=== PATIENT | male | born 1945 | race Caucasian/White ===

== ENCOUNTER 2016-06-24 12:01 | Day surgery (SDC) | payer MEDICARE, BC ==
[2016-06-24] MEDS ORDERED: fentaNYL 100 MCG PATCH TOP ONE (13:31)
[2016-06-24] MEDS ORDERED: fentaNYL 250 MCG/5 ML VIAL IVP ONE (13:31)
[2016-06-24] MEDS ORDERED: MIDAZOLAM 2 MG/2 ML VIAL IVP ONE (13:31)
[2016-06-24] MEDS ORDERED: LACTATED RINGERS 1,000 ML IV ONE ×2 (13:31→14:30)
[2016-06-24] MEDS ORDERED: SIMETHICONE 40 MG/0.6 ML 30 ML BOTTLE PO ONE (13:50)
== END 2016-06-24 12:02 | disposition home or self-care (01) ==
PROC: 0DBL8ZX Excision of Transverse Colon, Via Natural or Artificial Opening Endoscopic, Diagnostic (ICD-10-PCS; 2016-06-24)
PROC: 0DBG8ZX Excision of Left Large Intestine, Via Natural or Artificial Opening Endoscopic, Diagnostic (ICD-10-PCS; principal; 2016-06-24 13:00)
DX: Z86.010 Personal history of colon polyps (principal); K57.30 Diverticulosis of large intestine without perforation or abscess without bleeding; Z88.0 Allergy status to penicillin; Z88.2 Allergy status to sulfonamides; K58.9 Irritable bowel syndrome, unspecified; E11.9 Type 2 diabetes mellitus without complications; I10 Essential (primary) hypertension; I48.91 Unspecified atrial fibrillation; Z79.01 Long term (current) use of anticoagulants
CPT/HCPCS: 45380; A9270; J3010; J7120

== ENCOUNTER 2016-12-01 01:40 | Emergency (ER) | payer MEDICARE, BC ==
[2016-12-01] MEDS ORDERED: ONDANSETRON 4 MG/2 ML VIAL ONE (02:06)
[2016-12-01] MEDS ORDERED: SODIUM CHLORIDE FLUSH 0.9% 10 ML SYRINGE IVP ONE (02:06)
[2016-12-01] MEDS: ONDANSETRON 4 MG/2 ML VIAL IVP STA (02:06)
[2016-12-01 02:12] LABS: BASOPHILS % (AUTO) 0.1 %; EOSINOPHILS % (AUTO) 0.6 %; HCT - HEMATOCRIT 40.5 % (42.0-52.0); HGB - HEMOGLOBIN 13.6 g/dL (14.0-18.0); LYMPHOCYTES # (AUTO) 0.4 10^3/uL (1.5-3.5); LYMPHOCYTES % (AUTO) 6.2 %; MEAN CORPUSCULAR HEMOGLOBIN 31.6 pg (27.0-31.0); MEAN CORPUSCULAR HGB CONC 33.6 g/dL (32.0-36.0); MEAN PLATELET VOLUME 9.8 fL (7.4-11.4); MONOCYTES # (AUTO) 0.3 10^3/uL (0.0-1.0); MONOCYTES % (AUTO) 4.9 %; NEUTROPHILS # (AUTO) 5.1 10^3/uL (1.5-6.6); NEUTROPHILS % (AUTO) 88.2 %; RED BLOOD COUNT 4.31 10^6/uL (4.70-6.10); RED CELL DISTRIBUTION WIDTH 13.6 % (12.0-15.0); UNCORRECTED WHITE BLOOD COUNT 5.8 x10^3/uL; WHITE BLOOD COUNT 5.8 x10^3/uL (4.8-10.8)
[2016-12-01 02:16] LABS: ALBUMIN/GLOBULIN RATIO 1.6 (1.0-2.2); BILIRUBIN,TOTAL 2.2 mg/dL (0.2-1.0); CALCIUM 8.6 mg/dL (8.5-10.3); CREATININE 0.8 mg/dL (0.6-1.2); POTASSIUM 3.6 mmol/L (3.5-5.0)
[2016-12-01 02:17] LABS: INR 3.7 (0.8-1.2); PT - PROTHROMBIN TIME 41.8 secs (9.9-12.6)
[2016-12-01] MEDS: DICYCLOMINE 10 MG CAPSULE PO STA (02:30)
[2016-12-01] MEDS: SODIUM CHLORIDE 0.9% 1,000 ML IV ONE (02:30)
[2016-12-01] MEDS ORDERED: DICYCLOMINE 10 MG CAPSULE PO ONE (02:32)
[2016-12-01 03:22] LABS: BILIRUBIN,URINE NEGATIVE (NEGATIVE)
[2016-12-01 03:24] LABS: UA CHARGE (STRIP ONLY) YES; UR CULTURE IF IND NOT INDICATED
[2016-12-01] MEDS: IOPAMIDOL-300 100 ML VIAL IVP ONE (03:33)
--- NOTE | 2016-12-01 03:51 | ED Physician Documentation ---
PD HPI ABD PAIN - Stated complaint Stated Complaint: ABDOMINAL PAIN - Chief complaint Chief Complaint: Abd Pain - History obtained from History obtained from: Patient, Family - History of Present Illness Timing - onset: Today Timing - details: Gradual onset, Still present Quality: Cramping, Aching Location: All over / everywhere, Suprapubic Worsened by: Eating Associated symptoms: Nausea. No: Fever, Vomiting Similar symptoms before: No diagnosis Recently seen: Not recently seen - Additional information Additional information: Patient is a 71 year old male with multiple comorbidities who is presenting to the emergency department for abdominal pain, and diarrhea. patient states that he was feeling a little funny around noon and had an episode of loose watery stools. Patient took ammodium and drank three gatorades. Patient states that the stools got smaller and smaller but he still felt bloated so he came in for evaluation after talking to the physician after hours line. Review of Systems Constitutional: denies: Fever, Chills Eyes: denies: Photophobia Ears: denies: Ear pain, Drainage/discharge Nose: denies: Rhinorrhea / runny nose, Congestion, Epistaxis Throat: denies: Oral lesions / sores Cardiac: denies: Chest pain / pressure, Palpitations Respiratory: denies: Dyspnea, Cough, Wheezing GI: reports: Abdominal Pain, Abdominal Swelling, Nausea, Diarrhea. denies: Vomiting : denies: Dysuria, Frequency, Hesitancy Skin: denies: Rash, Lesions Musculoskeletal: denies: Neck pain, Back pain, Extremity pain Neurologic: denies: Generalized weakness, Focal weakness, Numbness, Difficulty speaking, Syncope, Altered mental status, Headache Immunocompromised: denies: Immunocompromised PD PAST MEDICAL HISTORY - Past Medical History Past Medical History: Yes Cardiovascular: Hypertension, High cholesterol, Atrial fibrillation, Murmur, Valve disorder, Other Respiratory: Other Endocrine/Autoimmune: Type 2 diabetes GI: Colon polyps, Ulcerative colitis : None HEENT: None Psych: Anxiety Musculoskeletal: Osteoarthritis Derm: Eczema - Past Surgical History Past Surgical History: Yes General: Colonoscopy Cardiovascular: Other HEENT: Cataracts - Present Medications Home Medications: Ambulatory Orders Medication Instructions Recorded Confirmed Atenolol 100 mg PO DAILY 11/23/12 06/24/16 Clonazepam 0.25 tab PO QID 11/23/12 06/24/16 Lactobacillus Rhamnosus GG 1 each PO DAILY 11/23/12 01/23/14 [Probiotic] Losartan [Cozaar] 50 mg PO DAILY 11/23/12 06/24/16 Metformin HCl [Glucophage Xr] 250 mg PO BID 11/23/12 06/24/16 Mometasone Furoate [Asmanex] 220 mcg IH HS 11/23/12 06/24/16 Multivitamin [Multivitamins] 1 each PO 11/23/12 01/23/14 Fluticasone [Flonase] 1 sprays ELIAZAR PRN 02/20/13 01/23/14 Loperamide HCl [Imodium A-D] 2 mg PO PRN 02/20/13 01/23/14 Fexofenadine [Frances] 180 mg PO DAILY 09/04/13 01/23/14 Rosuvastatin Calcium [Crestor] 5 mg PO QPM 09/04/13 06/24/16 Loratadine [Claritin] 10 mg ORAL QID 06/23/16 06/24/16 Mirtazapine [Remeron] 1 tab ORAL DAILY 06/23/16 06/24/16 Warfarin [Coumadin] 10 mg ORAL DAILY 06/23/16 06/24/16 Dicyclomine [Bentyl] 10 mg PO TID #15 capsule 12/01/16 Ondansetron Odt [Zofran] 4 mg TL Q6H PRN #14 tablet 12/01/16 - Allergies Allergies/Adverse Reactions: Allergies Allergy/AdvReac Type Severity Reaction Status Date / Time azithromycin [From Zithromax] Allergy Intermediate Cramps Verified 12/01/16 01: 55 doxycycline Allergy Mild Rash Verified 12/01/16 01:55 ampicillin [Ampicillin] AdvReac Intermediate Cramps Verified 12/01/16 01:55 cefaclor [From Ceclor] AdvReac Intermediate Cramps Verified 12/01/16 01:55 ciprofloxacin [From Cipro] AdvReac Intermediate Cramps Verified 12/01/16 01:55 ciprofloxacin HCl * AdvReac Intermediate Cramps Verified 12/01/16 01:55 [From Cipro] erythromycin base AdvReac Intermediate Cramps Verified 12/01/16 01:55 [Erythromycin Base] fluconazole [From Diflucan] AdvReac Intermediate Cramps Verified 12/01/16 01:55 Penicillins AdvReac Intermediate Cramps Verified 12/01/16 01:55 Sulfa (Sulfonamide AdvReac Intermediate Cramps Verified 12/01/16 01:55 Antibiotics) metronidazole [From Flagyl] AdvReac Nausea Verified 12/01/16 01:56 multiple antibiotics Allergy Rash Uncoded 12/01/16 01:55 azithromax AdvReac Intermediate Cramps Uncoded 12/01/16 01:55 - Social History Does the pt smoke?: No Smoking Status: Never smoker Does the pt drink ETOH?: No Does the pt have substance abuse?: No - Immunizations Immunizations are current?: Yes - POLST Patient has POLST: No PD ED PE NORMAL - Vitals Vital signs reviewed: Yes - General General: Alert and oriented X 3, No acute distress - HEENT HEENT: PERRL - Neck Neck: Supple, no meningeal sign - Cardiac Cardiac: RRR, No murmur - Respiratory Respiratory: No respiratory distress - Derm Derm: Normal color, Warm and dry - Neuro Neuro: Alert and oriented X 3, No motor deficit, No sensory deficit, Normal speech - Psych Psych: Normal mood, Normal affect PD ED PE EXPANDED - HEENT HEENT: Moist mucous membranes - Abdomen Abdomen: Hyperactive BS, Tender to palpation, Suprapubic. No: Rebound, Guarding Results - Vitals Vitals: Vital Signs - 24 hr 12/01/16 01:47 Temperature 37.3 C Heart Rate 100 Respiratory 16 Rate Blood Pressure 126/72 O2 Saturation 98 Oxygen O2 Source Room air - Labs Labs: Laboratory Tests 12/01/16 12/01/16 12/01/16 01:58 01:58 01:58 WBC 5.8 RBC 4.31 L Hgb 13.6 L Hct 40.5 L MCV 94.0 MCH 31.6 H MCHC 33.6 RDW 13.6 Plt Count 88 L MPV 9.8 Neut # 5.1 Lymph # 0.4 L [place] # 0.3 Eos # 0.0 Baso # 0.0 Absolute Nucleated RBC 0.00 Nucleated RBCs 0.0 PT INR Sodium 134 L Potassium 3.6 Chloride 100 L Carbon Dioxide 26 Anion Gap 8.0 BUN 25 H Creatinine 0.8 Estimated GFR (MDRD) 95 Glucose 132 H Lactic Acid 0.9 Calcium 8.6 Total Bilirubin 2.2 H AST 32 ALT 27 Alkaline Phosphatase 60 Total Protein 7.0 Albumin 4.3 Globulin 2.7 Albumin/Globulin Ratio 1.6 Lipase 60 H Urine Color Urine Clarity Urine pH Ur Specific [place] Urine Protein Urine Glucose (UA) Urine Ketones Urine Occult Blood Urine Nitrite Urine Bilirubin Urine Urobilinogen Ur Leukocyte Esterase Ur Microscopic Review Urine Culture Comments 12/01/16 12/01/16 01:58 03:15 WBC RBC Hgb Hct MCV MCH MCHC RDW Plt Count MPV Neut # Lymph # [place] # Eos # Baso # Absolute Nucleated RBC Nucleated RBCs PT 41.8 H INR 3.7 H Sodium Potassium Chloride Carbon Dioxide Anion Gap BUN Creatinine Estimated GFR (MDRD) Glucose Lactic Acid Calcium Total Bilirubin AST ALT Alkaline Phosphatase Total Protein Albumin Globulin Albumin/Globulin Ratio Lipase Urine Color YELLOW Urine Clarity CLEAR Urine pH 6.0 Ur Specific [place] <=1.005 Urine Protein NEGATIVE Urine Glucose (UA) NEGATIVE Urine Ketones NEGATIVE Urine Occult Blood TRACE-LYSE Urine Nitrite NEGATIVE Urine Bilirubin NEGATIVE Urine Urobilinogen 0.2 (NORMAL) Ur Leukocyte Esterase NEGATIVE Ur Microscopic Review NOT INDICATED Urine Culture Comments NOT INDICATED - Rads (name of study) ct abdomen and pelvis Radiology: Final report received (gastroenteritis, diverticulosis) PD MEDICAL DECISION MAKING - ED course Complexity details: reviewed old records, reviewed results, re-evaluated patient , considered differential, d/w patient, d/w family ED course: Patient was seen and examined at bedside. IV access was gained and labs were drawn. Patient was treated with fluids, zofran and bentyl. When patient's labs came back patient was sent for imaging. when patient returned the results were reviewed. there were findings consistent with viral gastroenteritis. Patient required no further work up and was stable for discharge with outpatient follow up. Departure - Departure Disposition: 01 Home, Self Care Clinical Impression: Gastroenteritis Condition: Good Instructions: ED Gastroenteritis Viral Follow-Up: Josh Hassan MD [Primary Care Provider] - Within 1 week Prescriptions: Dicyclomine [Bentyl] 10 mg PO TID #15 capsule Ondansetron Odt [Zofran] 4 mg TL Q6H PRN #14 tablet PRN Reason: Nausea / Vomiting Comments: Your diagnostics today revealed mild gastroenteritis. It is likely viral in nature and should be self limited. You should eat a simple diet and take zofran as needed for nausea. you should make sure you stay well hydrated with gatorade and electrolyte solutions. You can take tylenol or bentyl as needed for abdominal pain. You should follow up with your pmd if your symptoms persist for more than the next three days.
--- NOTE | 2016-12-01 03:55 | CT Preliminary Report ---
Exam: CT Abdomen/Pelvis W/ IMPRESSION: 1. Findings raise question of a low-grade gastroenteritis in the proper clinical setting. 2. Extensive colonic diverticulosis. 3. Cholelithiasis. 4. 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 [facility] SITE ID: [id number]
--- NOTE | 2016-12-01 04:01 | CT Report ---
EXAM: CT ABDOMEN AND PELVIS EXAM DATE: 12/01/2016 03:36 AM. CLINICAL HISTORY: Lower abdominal pain. COMPARISONS: None. TECHNIQUE: Routine helical CT imaging was performed through the abdomen and pelvis. IV contrast: 100 mL [id number]-300. Enteric contrast: No . Reconstructions: Coronal and sagittal. In accordance with CT protocol optimization, one or more of the following dose reduction techniques w ere utilized for this exam: automated exposure control, adjustment of mA and/or KV based on patient s ize, or use of iterative reconstructive technique. FINDINGS: Lung Bases: Pectus excavatum. Probable emphysema and scarring. Liver: Unremarkable. No suspicious masses. Gallbladder/Biliary System: Cholelithiasis. Spleen: Unremarkable. Pancreas: Unremarkable. Adrenal Glands: Unremarkable. Kidneys: Unremarkable. No suspicious masses or hydronephrosis. Peritoneal Cavity/Bowel: Extensive colonic diverticulosis. Fluid-filled nondistended small bowel thro ughout. No bowel obstruction or focal inflammatory process seen. No free air or significant free flui d. No masses or adenopathy. The appendix is not seen but there is no evidence of appendicitis. No exc essive stool burden. Pelvic Organs: Bladder and prostate appear unremarkable. Vasculature: Duplicated IVC. No aneurysms or other significant abnormality. Bones: Pectus excavatum. No acute abnormality. Other: None. IMPRESSION: 1. Findings raise question of a low-grade gastroenteritis in the proper clinical setting. 2. Extensive colonic diverticulosis. 3. Cholelithiasis. 4. 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 [facility] Referring Provider Line: [phone] SITE ID: [id number]
[2016-12-01 04:42] VITALS: BP 120/70
== END 2016-12-01 04:43 | disposition home or self-care (01) ==
LOC: ED 01:40
DX: K52.9 Noninfective gastroenteritis and colitis, unspecified (principal); I10 Essential (primary) hypertension; E78.00 Pure hypercholesterolemia, unspecified; I48.91 Unspecified atrial fibrillation; Z79.01 Long term (current) use of anticoagulants; E11.9 Type 2 diabetes mellitus without complications; Z79.84 Long term (current) use of oral hypoglycemic drugs; M19.90 Unspecified osteoarthritis, unspecified site; Z86.010 Personal history of colon polyps; Z87.19 Personal history of other diseases of the digestive system
CPT/HCPCS: 36415; 74177; 80053; 81003; 83605; 83690; 85025; 85610; 96374; 99283; 99284; A9270; Q9967; 81001; 83880; 84484; 87086

== ENCOUNTER 2016-12-19 07:26 | Outpatient (CLI) | payer MEDICARE, BC ==
[2016-12-19 08:05] LABS: BASOPHILS # (AUTO) 0.1 10^3/uL (0.0-0.1); BASOPHILS % (AUTO) 1.4 %; EOSINOPHILS # (AUTO) 0.1 10^3/uL (0.0-0.7); HCT - HEMATOCRIT 42.2 % (42.0-52.0); HGB - HEMOGLOBIN 13.9 g/dL (14.0-18.0); LYMPHOCYTES % (AUTO) 23.2 %; MEAN CORPUSCULAR HEMOGLOBIN 31.4 pg (27.0-31.0); MEAN CORPUSCULAR HGB CONC 32.9 g/dL (32.0-36.0); MEAN CORPUSCULAR VOLUME 95.6 fL (80.0-94.0); MONOCYTES # (AUTO) 0.4 10^3/uL (0.0-1.0); MONOCYTES % (AUTO) 8.4 %; NEUTROPHILS # (AUTO) 2.8 10^3/uL (1.5-6.6); NUCLEATED RED BLOOD CELLS AUTO 0.1 /100WBC; RED BLOOD COUNT 4.42 10^6/uL (4.70-6.10); RED CELL DISTRIBUTION WIDTH 13.4 % (12.0-15.0); UNCORRECTED WHITE BLOOD COUNT 4.4 x10^3/uL; WHITE BLOOD COUNT 4.4 x10^3/uL (4.8-10.8)
[2016-12-19 08:13] LABS: ALBUMIN/GLOBULIN RATIO 1.8 (1.0-2.2); BILIRUBIN,TOTAL 1.8 mg/dL (0.2-1.0); CALCIUM 9.4 mg/dL (8.5-10.3); CREATININE 0.8 mg/dL (0.6-1.2); POTASSIUM 3.8 mmol/L (3.5-5.0)
[2016-12-19 08:32] LABS: HEMOGLOBIN A1C 0.59 g/dL
== END 2016-12-19 07:27 | disposition home or self-care (01) ==
LOC: LAB 07:26
PROVIDERS: ATTEND Family Medicine
DX: E11.9 Type 2 diabetes mellitus without complications (principal)
CPT/HCPCS: 80053; 82043; 83036; 85025

== ENCOUNTER 2017-01-11 09:55 | Outpatient (CLI) | payer MEDICARE, BC | END 2017-01-11 09:56 | disposition home or self-care (01) | LOC: RT 09:55 | PROVIDERS: ATTEND Nurse Practitioner | DX: I48.0 Paroxysmal atrial fibrillation (principal) | CPT/HCPCS: 93005 ==

== ENCOUNTER 2017-02-20 08:57 | Outpatient (CLI) | payer MEDICARE, BC ==
[2017-02-20 09:14] LABS: BASOPHILS % (AUTO) 0.6 %; EOSINOPHILS # (AUTO) 0.1 10^3/uL (0.0-0.7); HCT - HEMATOCRIT 41.4 % (42.0-52.0); HGB - HEMOGLOBIN 13.7 g/dL (14.0-18.0); LYMPHOCYTES # (AUTO) 0.9 10^3/uL (1.5-3.5); LYMPHOCYTES % (AUTO) 20.7 %; MEAN CORPUSCULAR HEMOGLOBIN 31.2 pg (27.0-31.0); MEAN CORPUSCULAR HGB CONC 33.1 g/dL (32.0-36.0); MEAN CORPUSCULAR VOLUME 94.4 fL (80.0-94.0); MEAN PLATELET VOLUME 9.5 fL (7.4-11.4); MONOCYTES # (AUTO) 0.4 10^3/uL (0.0-1.0); MONOCYTES % (AUTO) 8.8 %; NEUTROPHILS # (AUTO) 2.9 10^3/uL (1.5-6.6); NEUTROPHILS % (AUTO) 67.9 %; NUCLEATED RED BLOOD CELLS AUTO 0.1 /100WBC; RED BLOOD COUNT 4.39 10^6/uL (4.70-6.10); RED CELL DISTRIBUTION WIDTH 13.7 % (12.0-15.0); UNCORRECTED WHITE BLOOD COUNT 4.3 x10^3/uL; WHITE BLOOD COUNT 4.3 x10^3/uL (4.8-10.8)
[2017-02-20 09:27] LABS: ALBUMIN/GLOBULIN RATIO 1.4 (1.0-2.2); BILIRUBIN,TOTAL 1.9 mg/dL (0.2-1.0); CALCIUM 9.3 mg/dL (8.5-10.3); CREATININE 0.8 mg/dL (0.6-1.2); POTASSIUM 4.1 mmol/L (3.5-5.0); TOTAL PROTEIN 7.1 g/dL (6.7-8.2)
== END 2017-02-20 08:58 | disposition home or self-care (01) ==
LOC: LAB 08:57
PROVIDERS: ATTEND Family Medicine
DX: D69.6 Thrombocytopenia, unspecified (principal); E11.9 Type 2 diabetes mellitus without complications; I10 Essential (primary) hypertension
CPT/HCPCS: 36415; 80053; 85025

== ENCOUNTER 2017-08-21 07:44 | Outpatient (CLI) | payer MEDICARE, BC ==
[2017-08-21 08:18] LABS: BASOPHILS # (AUTO) 0.1 10^3/uL (0.0-0.1); BASOPHILS % (AUTO) 1.3 %; EOSINOPHILS # (AUTO) 0.1 10^3/uL (0.0-0.7); EOSINOPHILS % (AUTO) 2.2 %; HGB - HEMOGLOBIN 14.6 g/dL (14.0-18.0); LYMPHOCYTES # (AUTO) 0.8 10^3/uL (1.5-3.5); LYMPHOCYTES % (AUTO) 19.1 %; MEAN CORPUSCULAR HEMOGLOBIN 31.8 pg (27.0-31.0); MEAN CORPUSCULAR HGB CONC 33.2 g/dL (32.0-36.0); MEAN CORPUSCULAR VOLUME 95.6 fL (80.0-94.0); MEAN PLATELET VOLUME 10.1 fL (7.4-11.4); MONOCYTES # (AUTO) 0.5 10^3/uL (0.0-1.0); MONOCYTES % (AUTO) 11.6 %; NEUTROPHILS # (AUTO) 2.9 10^3/uL (1.5-6.6); NEUTROPHILS % (AUTO) 65.8 %; PLT - PLATELET COUNT 87 10^3/uL (130-450); RED BLOOD COUNT 4.58 10^6/uL (4.70-6.10); RED CELL DISTRIBUTION WIDTH 13.5 % (12.0-15.0); WHITE BLOOD COUNT 4.4 x10^3/uL (4.8-10.8)
[2017-08-21 08:34] LABS: HB2 TOTAL 16.1 g/dL; HEMOGLOBIN A1C 0.64 g/dL; HEMOGLOBIN A1C % 5.8 % (4.6-6.2)
[2017-08-21 08:40] LABS: ALBUMIN 4.4 g/dL (3.2-5.5); ALBUMIN/GLOBULIN RATIO 1.5 (1.0-2.2); ALKALINE PHOSPHATASE 68 IU/L (42-121); ALT ALANINE AMINOTRANSFERASE 30 IU/L (10-60); AST ASPARTATE AMINOTRANSFERASE 36 IU/L (10-42); BILIRUBIN,TOTAL 2.3 mg/dL (0.2-1.0); BUN - BLOOD UREA NITROGEN 25 mg/dL (6-20); CALCIUM 9.2 mg/dL (8.5-10.3); CARBON DIOXIDE - CO2 31 mmol/L (21-32); CHLORIDE 103 mmol/L (101-111); CHOL/HDL RATIO 2.3 (<5.0); CHOLESTEROL 115 mg/dL; GFR - MDRD 73 (>89); GLUCOSE 110 mg/dL (70-100); HDL CHOLESTEROL 49 mg/dL; LDL CHOLESTEROL,CALCULATED 56 mg/dL; LDL/HDL RATIO 1.1 (<3.6); SODIUM 140 mmol/L (135-145); TOTAL PROTEIN 7.3 g/dL (6.7-8.2); VLDL CHOLESTEROL 10 mg/dL
== END 2017-08-21 07:45 | disposition home or self-care (01) ==
LOC: LAB 07:44
PROVIDERS: ATTEND Family Medicine
DX: D69.6 Thrombocytopenia, unspecified (principal); I48.91 Unspecified atrial fibrillation; I10 Essential (primary) hypertension; E11.9 Type 2 diabetes mellitus without complications; Z12.5 Encounter for screening for malignant neoplasm of prostate
CPT/HCPCS: 36415; 80053; 80061; 82043; 83036; 85025; G0103; 83721; 84153

== ENCOUNTER 2018-01-10 07:36 | Outpatient (CLI) | payer MEDICARE, BC ==
[2018-01-10 08:04] LABS: ALBUMIN 4.3 g/dL (3.2-5.5); ALBUMIN/GLOBULIN RATIO 1.3 (1.0-2.2); BILIRUBIN,TOTAL 1.8 mg/dL (0.2-1.0); CALCIUM 9.1 mg/dL (8.5-10.3); CREATININE 0.9 mg/dL (0.6-1.2); TOTAL PROTEIN 7.5 g/dL (6.7-8.2)
[2018-01-10 10:01] LABS: HB2 TOTAL 15.8 g/dL; HEMOGLOBIN A1C 0.67 g/dL
== END 2018-01-10 07:37 | disposition home or self-care (01) ==
LOC: LAB 07:36
PROVIDERS: ATTEND Family Medicine
DX: I34.0 Nonrheumatic mitral (valve) insufficiency (principal); I48.91 Unspecified atrial fibrillation; E11.9 Type 2 diabetes mellitus without complications
CPT/HCPCS: 36415; 80053; 82043; 83036

== ENCOUNTER 2018-08-24 07:16 | Outpatient (CLI) | payer MEDICARE, BC ==
[2018-08-24 07:44] LABS: BASOPHILS # (AUTO) 0.1 10^3/uL (0.0-0.1); BASOPHILS % (AUTO) 1.3 %; EOSINOPHILS # (AUTO) 0.1 10^3/uL (0.0-0.7); EOSINOPHILS % (AUTO) 2.2 %; HGB - HEMOGLOBIN 14.8 g/dL (14.0-18.0); LYMPHOCYTES # (AUTO) 0.9 10^3/uL (1.5-3.5); LYMPHOCYTES % (AUTO) 20.5 %; MEAN CORPUSCULAR HGB CONC 33.2 g/dL (32.0-36.0); MEAN CORPUSCULAR VOLUME 96.2 fL (80.0-94.0); MEAN PLATELET VOLUME 10.3 fL (7.4-11.4); MONOCYTES # (AUTO) 0.4 10^3/uL (0.0-1.0); MONOCYTES % (AUTO) 9.3 %; NEUTROPHILS # (AUTO) 2.8 10^3/uL (1.5-6.6); NEUTROPHILS % (AUTO) 66.7 %; PLT - PLATELET COUNT 102 10^3/uL (130-450); RED BLOOD COUNT 4.62 10^6/uL (4.70-6.10); RED CELL DISTRIBUTION WIDTH 13.7 % (12.0-15.0); WHITE BLOOD COUNT 4.2 x10^3/uL (4.8-10.8)
[2018-08-24 09:22] LABS: CHOL/HDL RATIO 2.4 (<5.0); CHOLESTEROL 114 mg/dL; HDL CHOLESTEROL 47 mg/dL; LDL CHOLESTEROL,CALCULATED 58 mg/dL; LDL/HDL RATIO 1.2 (<3.6); VLDL CHOLESTEROL 9 mg/dL
[2018-08-25 13:44] LABS: ALBUMIN 4.6 g/dL (3.2-5.5); ALBUMIN/GLOBULIN RATIO 1.8 (1.0-2.2); BILIRUBIN,TOTAL 2.7 mg/dL (0.2-1.0); CALCIUM 9.3 mg/dL (8.5-10.3); CREATININE 0.8 mg/dL (0.6-1.2); TOTAL PROTEIN 7.2 g/dL (6.7-8.2)
== END 2018-08-24 07:17 | disposition home or self-care (01) ==
LOC: LAB 07:16
PROVIDERS: ATTEND Family Medicine
DX: I48.91 Unspecified atrial fibrillation (principal); I10 Essential (primary) hypertension; Z12.5 Encounter for screening for malignant neoplasm of prostate; E78.5 Hyperlipidemia, unspecified
CPT/HCPCS: 36415; 80061; 82043; G0103; 80048; 80053; 83721; 84153; 84443; 85025

== ENCOUNTER 2018-09-14 09:16 | Outpatient (CLI) | payer MEDICARE, BC ==
--- NOTE | 2018-09-14 14:18 | Ultrasound Report ---
Reason: THYROID NODULE Procedure Date: 09/14/2018 Accession Number: [id number] / [id number] Procedure: US - Head or Neck Soft Tissue CPT Code: FULL RESULT: EXAM: THYROID ULTRASOUND EXAM DATE: 09/14/2018 10:03 AM. CLINICAL HISTORY: Thyroid nodule. COMPARISON: HEAD OR NECK SOFT TISSUE 09/25/2015 9:26 AM. TECHNIQUE: Real time sonographic imaging of the thyroid was performed by the caving guide. Multiple small business sales representative static images were saved for review. FINDINGS: THYROID GLAND: Right Lobe: 4.8 x 1.8 x 1.5 cm, volume 6.5 cc. Normal background echotexture. Right Lobe Nodules: The mixed solid cystic spongiform 5 mm nodule is stable. 2 cysts measuring 3 mm or less are seen, benign. Left Lobe: 4.5 x 1.5 x 1.5 cm, volume 5.4 cc. Normal background echotexture. Left Lobe Nodules: The solid isoechoic 5 mm nodule is stable. Note is made of a 2 mm cyst, benign. Isthmus: 0.1 cm AP. Isthmic Nodules: None. LYMPH NODES: No adenopathy demonstrated in the central or lateral compartment. OTHER: None. IMPRESSION: Stable appearance of 2 nodules measuring up to 0.5 cm with very low suspicion features. Management recommendations are based on 2015 [place] [employer] Management Guidelines for Adult Patients with Thyroid Nodules and Differentiated Thyroid Cancer. [facility]
== END 2018-09-14 09:17 | disposition home or self-care (01) ==
LOC: DI 09:16
PROVIDERS: ATTEND Family Medicine
DX: E04.2 Nontoxic multinodular goiter (principal)
CPT/HCPCS: 76536

== ENCOUNTER 2018-10-25 08:09 | Outpatient (CLI) | payer MEDICARE, BC ==
[2018-10-25 08:47] LABS: CALCIUM 9.3 mg/dL (8.5-10.3); CREATININE 0.9 mg/dL (0.6-1.2)
[2018-10-25 09:20] LABS: HB2 TOTAL 15.6 g/dL; HEMOGLOBIN A1C 0.71 g/dL; HEMOGLOBIN A1C % 6.3 % (4.6-6.2)
== END 2018-10-25 08:10 | disposition home or self-care (01) ==
LOC: LAB 08:09
PROVIDERS: ATTEND Family Medicine
DX: I34.0 Nonrheumatic mitral (valve) insufficiency (principal); E11.9 Type 2 diabetes mellitus without complications
CPT/HCPCS: 36415; 80048; 83036

== ENCOUNTER 2019-01-03 16:37 | Emergency (ER) | payer MEDICARE, BC ==
[2019-01-03 17:04] LABS: BASOPHILS % (AUTO) 0.5 %; EOSINOPHILS # (AUTO) 0.1 10^3/uL (0.0-0.7); EOSINOPHILS % (AUTO) 1.1 %; HGB - HEMOGLOBIN 14.2 g/dL (14.0-18.0); LYMPHOCYTES # (AUTO) 1.1 10^3/uL (1.5-3.5); LYMPHOCYTES % (AUTO) 18.2 %; MEAN CORPUSCULAR HEMOGLOBIN 32.6 pg (27.0-31.0); MEAN CORPUSCULAR HGB CONC 32.9 g/dL (32.0-36.0); MEAN CORPUSCULAR VOLUME 98.9 fL (80.0-94.0); MEAN PLATELET VOLUME 11.8 fL (7.4-11.4); MONOCYTES # (AUTO) 0.5 10^3/uL (0.0-1.0); MONOCYTES % (AUTO) 8.4 %; NEUTROPHILS # (AUTO) 4.4 10^3/uL (1.5-6.6); NEUTROPHILS % (AUTO) 71.5 %; PLT - PLATELET COUNT 120 10^3/uL (130-450); RED BLOOD COUNT 4.36 10^6/uL (4.70-6.10); RED CELL DISTRIBUTION WIDTH 13.1 % (12.0-15.0); WHITE BLOOD COUNT 6.1 x10^3/uL (4.8-10.8)
[2019-01-03 17:08] LABS: INR 1.1 (0.8-1.2); PT - PROTHROMBIN TIME 12.7 secs (9.9-12.6)
[2019-01-03 17:15] LABS: ALBUMIN 4.8 g/dL (3.2-5.5); ALBUMIN/GLOBULIN RATIO 1.5 (1.0-2.2); BILIRUBIN,TOTAL 1.9 mg/dL (0.2-1.0); CALCIUM 9.9 mg/dL (8.5-10.3); CREATININE 0.9 mg/dL (0.6-1.2); TOTAL PROTEIN 7.9 g/dL (6.7-8.2)
[2019-01-03 18:52] LABS: BILIRUBIN,URINE NEGATIVE (NEGATIVE); GLUCOSE, URINE (UA) NEGATIVE (NEGATIVE); KETONES,URINE (UA) NEGATIVE (NEGATIVE); LEUKOCYTE ESTERASE, URINE NEGATIVE (NEGATIVE); NITRITE,URINE NEGATIVE (NEGATIVE); OCCULT BLOOD,URINE NEGATIVE (NEGATIVE); PH,URINE 5.5 PH (5.0-7.5); PROTEIN,URINE NEGATIVE (NEGATIVE); UROBILINOGEN,URINE 0.2 (NORMAL) E.U./dL (NORMAL)
[2019-01-03 18:55] LABS: CLARITY,URINE CLEAR (CLEAR)
[2019-01-03] MEDS ORDERED: MAG HYDROX/AL HYDROX/SIMETH 30 ML UDC PO STA (19:25)
[2019-01-03] MEDS ORDERED: LIDOCAINE VISCOUS 2% 15 ML UDC MM STA (19:26)
--- NOTE | 2019-01-03 19:27 | ED Physician Documentation ---
PD HPI ABD PAIN - Stated complaint Stated Complaint: ABDOMINAL PX - Chief complaint Chief Complaint: Abd Pain - History obtained from History obtained from: Patient - History of Present Illness Timing - onset: Yesterday (73-year-old gentleman who after eating a lot of tomato soup yesterday developed periumbilical bandlike nonradiating pain that has been resistant to Mylanta and omeprazole at home. He feels like he has a sour stomach. No nausea or vomiting. Normal bowel movements. It feels like prior gastritis.) Review of Systems Constitutional: denies: Fever, Chills Eyes: reports: Reviewed and negative Cardiac: denies: Chest pain / pressure, Palpitations Respiratory: denies: Dyspnea, Cough : reports: Reviewed and negative PD PAST MEDICAL HISTORY - Past Medical History Cardiovascular: Hypertension, High cholesterol, Atrial fibrillation, Murmur, Valve disorder, Other Respiratory: Other Endocrine/Autoimmune: Type 2 diabetes GI: Colon polyps, Ulcerative colitis : None HEENT: None Psych: Anxiety Musculoskeletal: Osteoarthritis Derm: Eczema - Past Surgical History Past Surgical History: Yes General: Colonoscopy Cardiovascular: Other HEENT: Cataracts - Present Medications Home Medications: Ambulatory Orders Medication Instructions Recorded Confirmed Clonazepam 0.25 tab PO QID 11/23/12 06/24/16 Lactobacillus Rhamnosus GG 1 each PO DAILY 11/23/12 01/23/14 [Probiotic] Losartan [Cozaar] 50 mg PO DAILY 11/23/12 06/24/16 Metformin HCl [Glucophage Xr] 250 mg PO BID 11/23/12 06/24/16 Mometasone Furoate [Asmanex] 220 mcg IH HS 11/23/12 06/24/16 Multivitamin [Multivitamins] 1 each PO 11/23/12 01/23/14 Fluticasone [Flonase] 1 sprays ELIAZAR PRN 02/20/13 01/23/14 Loperamide HCl [Imodium A-D] 2 mg PO PRN 02/20/13 01/23/14 Rosuvastatin Calcium [Crestor] 5 mg PO QPM 09/04/13 06/24/16 Dicyclomine [Bentyl] 10 mg PO TID #15 capsule 12/01/16 Metoprolol Succinate [Toprol Xl] 01/03/19 Rivaroxaban [Xarelto] 09/10/19 - Allergies Allergies/Adverse Reactions: Allergies Allergy/AdvReac Type Severity Reaction Status Date / Time azithromycin [From Zithromax] Allergy Intermediate Cramps Verified 12/01/16 01:55 doxycycline Allergy Mild Rash Verified 12/01/16 01:55 ampicillin [Ampicillin] AdvReac Intermediate Cramps Verified 12/01/16 01:55 cefaclor [From Ceclor] AdvReac Intermediate Cramps Verified 12/01/16 01:55 ciprofloxacin [From Cipro] AdvReac Intermediate Cramps Verified 12/01/16 01:55 ciprofloxacin HCl * AdvReac Intermediate Cramps Verified 12/01/16 01:55 [From Cipro] erythromycin base AdvReac Intermediate Cramps Verified 12/01/16 01:55 [Erythromycin Base] fluconazole [From Diflucan] AdvReac Intermediate Cramps Verified 12/01/16 01:55 Penicillins AdvReac Intermediate Cramps Verified 12/01/16 01:55 Sulfa (Sulfonamide AdvReac Intermediate Cramps Verified 12/01/16 01:55 Antibiotics) metronidazole [From Flagyl] AdvReac Nausea Verified 12/01/16 01:56 multiple antibiotics Allergy Rash Uncoded 12/01/16 01:55 azithromax AdvReac Intermediate Cramps Uncoded 12/01/16 01:55 - Social History Does the pt smoke?: No Smoking Status: Never smoker Does the pt drink ETOH?: No Does the pt have substance abuse?: No - Immunizations Immunizations are current?: Yes - POLST Patient has POLST: No PD ED PE NORMAL - Vitals Vital signs reviewed: Yes - General General: Alert and oriented X 3, Other (He has a marfanoid appearance, he says he was tested for this remotely and was negative.) - HEENT HEENT: PERRL, EOMI - Neck Neck: Supple, no meningeal sign, No bony TTP - Cardiac Cardiac: Other (Irregularly irregular, no murmur, pectus excavatum) - Respiratory Respiratory: No respiratory distress, Clear bilaterally - Abdomen Abdomen: Normal bowel sounds, Soft, Non tender, Other (Pulsatile aorta, but he is quite thin. Bedside ultrasound shows a less than 2.5 cm aorta throughout, easily visualized.) - Extremities Extremities: No edema, No calf tenderness / cord - Neuro Neuro: Alert and oriented X 3, Normal speech Results - Vitals Vitals: Vital Signs - 24 hr 01/03/19 01/03/19 16:56 19:34 Temperature 36.5 C Heart Rate 94 77 Respiratory 18 18 Rate Blood Pressure 164/74 H 159/78 H O2 Saturation 97 99 Oxygen O2 Source Room air - EKG (time done) 1938 Rate: Rate (enter#) (76) Rhythm: Atrial fibrillation [place]: Normal, LAD Intervals: Normal SC QRS: Normal Ischemia: Normal ST segments Computer interpretation: Agree with computer - Labs Labs: Laboratory Tests 01/03/19 01/03/19 01/03/19 16:57 16:57 16:57 WBC 6.1 RBC 4.36 L Hgb 14.2 Hct 43.1 MCV 98.9 H MCH 32.6 H MCHC 32.9 RDW 13.1 Plt Count 120 L MPV 11.8 H Neut # (Auto) 4.4 Lymph # (Auto) 1.1 L [place] # (Auto) 0.5 Eos # (Auto) 0.1 Baso # (Auto) 0.0 Absolute Nucleated RBC 0.00 Nucleated RBC % 0.0 PT 12.7 H INR 1.1 Sodium 138 Potassium 3.5 Chloride 100 L Carbon Dioxide 29 Anion Gap 9.0 BUN 34 H Creatinine 0.9 Estimated GFR (MDRD) 83 L Glucose 126 H Lactic Acid Calcium 9.9 Total Bilirubin 1.9 H AST 37 ALT 37 Alkaline Phosphatase 77 Troponin I High Sens Total Protein 7.9 Albumin 4.8 Globulin 3.1 Albumin/Globulin Ratio 1.5 Lipase 39 Urine Color Urine Clarity Urine pH Ur Specific [place] Urine Protein Urine Glucose (UA) Urine Ketones Urine Occult Blood Urine Nitrite Urine Bilirubin Urine Urobilinogen Ur Leukocyte Esterase Ur Microscopic Review Urine Culture Comments 01/03/19 01/03/19 01/03/19 16:57 16:57 17:10 WBC RBC Hgb Hct MCV MCH MCHC RDW Plt Count MPV Neut # (Auto) Lymph # (Auto) [place] # (Auto) Eos # (Auto) Baso # (Auto) Absolute Nucleated RBC Nucleated RBC % PT INR Sodium Potassium Chloride Carbon Dioxide Anion Gap BUN Creatinine Estimated GFR (MDRD) Glucose Lactic Acid 1.1 Calcium Total Bilirubin AST ALT Alkaline Phosphatase Troponin I High Sens 7.9 Total Protein Albumin Globulin Albumin/Globulin Ratio Lipase Urine Color YELLOW Urine Clarity CLEAR Urine pH 5.5 Ur Specific [place] 1.020 Urine Protein NEGATIVE Urine Glucose (UA) NEGATIVE Urine Ketones NEGATIVE Urine Occult Blood NEGATIVE Urine Nitrite NEGATIVE Urine Bilirubin NEGATIVE Urine Urobilinogen 0.2 (NORMAL) Ur Leukocyte Esterase NEGATIVE Ur Microscopic Review NOT INDICATED Urine Culture Comments NOT INDICATED - Rads (name of study) CT A/P Radiology: EMP read contemporaneously (Located IVC, cholelithiasis, diverticulosis.) PD MEDICAL DECISION MAKING - ED course ED course: 73-year-old gentleman with periumbilical abdominal pain, benign exam, no AAA on ultrasound. He does appear marfanoid, but says he had negative testing for Marfan's in the past. He received some relief with lidocaine, but it was incomplete. CT exam discussed with patient. Clinically inconsistent with gallstones, he was actually pain-free after the CT. Departure - Departure Disposition: 01 Home, Self Care Clinical Impression: Abdominal pain Qualifiers: Abdominal location: generalized Qualified Code(s): R10.84 - Generalized abdominal pain Gastritis Qualifiers: Gastritis type: unspecified gastritis Chronicity: acute Gastritis bleeding: without bleeding Qualified Code(s): K29.00 - Acute gastritis without bleeding Condition: Good Record reviewed to determine appropriate education?: Yes Instructions: ED Gastritis Comments: Continue the omeprazole, but he can double it to twice daily. Return for new worsening symptoms, especially fever, worse pain, vomiting, blood from either end. Follow-up with Dr. Hassan next week. Consider endoscopy or urea breath test if symptoms are persistent to evaluate for Helicobacter pylori.
[2019-01-03] MEDS ORDERED: IOVERSOL 320 100 ML VIAL IVP ONE ×2 (20:44→20:52)
--- NOTE | 2019-01-03 21:04 | CT Report ---
Reason: IV only, central abd pain Procedure Date: 01/03/2019 Accession Number: [id number] / [id number] Procedure: CT - Abdomen/Pelvis W CPT Code: FULL RESULT: EXAM: CT ABDOMEN AND PELVIS EXAM DATE: 01/03/2019 08:53 PM. CLINICAL HISTORY: IV only, central abd pain. COMPARISONS: ABDOMEN/PELVIS W/ 12/01/2016 3:24 AM. TECHNIQUE: Routine helical CT imaging was performed through the abdomen and pelvis. IV contrast: CE. Enteric contrast: No. Reconstructions: Coronal and sagittal. In accordance with CT protocol optimization, one or more of the following dose reduction techniques were utilized for this exam: automated exposure control, adjustment of mA and/or KV based on patient size, or use of iterative reconstructive technique. FINDINGS: Lung Bases: Noted is a pectus excavatum. No infiltrates the lung bases. Liver: The liver is grossly unremarkable. No interval changes compared to the prior study. Gallbladder/Bile Ducts: Cholelithiasis without evidence for cholecystitis. Spleen: Normal. Pancreas: Normal. Adrenal Glands: Normal. Kidneys: Normal. No masses or hydronephrosis. Peritoneal Cavity/Bowel: Normal. No free fluid, free air or adenopathy. No masses or acute inflammatory process. There are no inflammatory changes related to the colon. There are multiple scattered diverticula without evidence for diverticulitis. No inflammatory changes in the region of the cecum. No evidence for appendicitis. Pelvic Organs: Normal. The bladder and visualized pelvic organs are within normal limits. Vasculature: Duplicated inferior vena cava. Unremarkable aortoiliac vessels. Bones: Degenerative changes of the spine particularly the L2-L3 and 4 L5 disk levels. Other: None. IMPRESSION: 1. No findings to explain clinical symptoms. 2. Duplicated inferior vena cava. 3. Cholelithiasis. 4. Prominent diverticulosis without evidence for diverticulitis. [facility]
[2019-01-03 21:38] VITALS: BP 143/83
== END 2019-01-03 21:55 | disposition home or self-care (01) ==
LOC: ED 16:37
DX: K29.00 Acute gastritis without bleeding (principal); K80.20 Calculus of gallbladder without cholecystitis without obstruction; K57.30 Diverticulosis of large intestine without perforation or abscess without bleeding; I48.91 Unspecified atrial fibrillation; Z79.01 Long term (current) use of anticoagulants; I10 Essential (primary) hypertension; E11.9 Type 2 diabetes mellitus without complications; Z79.84 Long term (current) use of oral hypoglycemic drugs; Z87.19 Personal history of other diseases of the digestive system; Z86.010 Personal history of colon polyps
CPT/HCPCS: 36415; 74177; 80053; 81003; 83605; 83690; 84484; 85025; 85610; 93005; 99284; A9270; Q9967; 81001; 87086

== ENCOUNTER 2019-01-24 08:45 | Outpatient (CLI) | payer MEDICARE, BC ==
[2019-01-24 09:17] LABS: BASOPHILS % (AUTO) 0.4 %; EOSINOPHILS % (AUTO) 0.6 %; HGB - HEMOGLOBIN 14.8 g/dL (14.0-18.0); LYMPHOCYTES # (AUTO) 0.8 10^3/uL (1.5-3.5); LYMPHOCYTES % (AUTO) 14.9 %; MEAN CORPUSCULAR HEMOGLOBIN 32.6 pg (27.0-31.0); MEAN CORPUSCULAR HGB CONC 33.4 g/dL (32.0-36.0); MEAN CORPUSCULAR VOLUME 97.6 fL (80.0-94.0); MEAN PLATELET VOLUME 11.2 fL (7.4-11.4); MONOCYTES # (AUTO) 0.4 10^3/uL (0.0-1.0); NEUTROPHILS % (AUTO) 76.9 %; PLT - PLATELET COUNT 110 10^3/uL (130-450); RED BLOOD COUNT 4.54 10^6/uL (4.70-6.10); WHITE BLOOD COUNT 5.2 x10^3/uL (4.8-10.8)
[2019-01-24 09:40] LABS: HB2 TOTAL 14.5 g/dL; HEMOGLOBIN A1C 0.6 g/dL; HEMOGLOBIN A1C % 5.9 % (4.6-6.2)
[2019-01-24 10:36] LABS: CREATININE,URINE 81.5 mg/dL; MICROALBUM/CREATININE RATIO,UR 3.7 ug/mg (<30.0); MICROALBUMIN,URINE 0.3 mg/dL (0-300.0)
[2019-01-24 11:38] LABS: ALBUMIN 4.3 g/dL (3.2-5.5); ALBUMIN/GLOBULIN RATIO 1.8 (1.0-2.2); ALKALINE PHOSPHATASE 64 IU/L (42-121); ALT ALANINE AMINOTRANSFERASE 31 IU/L (10-60); AST ASPARTATE AMINOTRANSFERASE 30 IU/L (10-42); BILIRUBIN,TOTAL 2.2 mg/dL (0.2-1.0); BUN - BLOOD UREA NITROGEN 26 mg/dL (6-20); CARBON DIOXIDE - CO2 28 mmol/L (21-32); CHLORIDE 102 mmol/L (101-111); CHOL/HDL RATIO 2.3 (<5.0); CHOLESTEROL 112 mg/dL; CREATININE 0.9 mg/dL (0.6-1.2); GFR - MDRD 83 (>89); GLUCOSE 115 mg/dL (70-100); HDL CHOLESTEROL 48 mg/dL; SODIUM 137 mmol/L (135-145); TOTAL PROTEIN 6.7 g/dL (6.7-8.2)
== END 2019-01-24 08:46 | disposition home or self-care (01) ==
LOC: LAB 08:45
PROVIDERS: ATTEND Family Medicine
DX: E04.1 Nontoxic single thyroid nodule (principal); E11.9 Type 2 diabetes mellitus without complications; I34.0 Nonrheumatic mitral (valve) insufficiency; I48.91 Unspecified atrial fibrillation; A31.0 Pulmonary mycobacterial infection
CPT/HCPCS: 36415; 80053; 80061; 82043; 82570; 83036; 83721; 84443; 85025

== ENCOUNTER 2019-02-16 09:52 | Outpatient (CLI) | payer MEDICARE, BC | END 2019-02-16 09:53 | disposition home or self-care (01) | LOC: NS 09:52 | PROVIDERS: ATTEND Family Medicine | DX: Z71.3 Dietary counseling and surveillance (principal); E11.9 Type 2 diabetes mellitus without complications; R63.0 Anorexia | CPT/HCPCS: 97802 ==

== ENCOUNTER 2019-03-02 12:58 | Outpatient (CLI) | payer MEDICARE, BC | END 2019-03-02 12:59 | disposition home or self-care (01) | LOC: NS 12:58 | PROVIDERS: ATTEND Family Medicine | DX: Z71.3 Dietary counseling and surveillance (principal); Z68.20 Body mass index [BMI] 20.0-20.9, adult; E11.9 Type 2 diabetes mellitus without complications; R63.0 Anorexia | CPT/HCPCS: 97803 ==

== ENCOUNTER 2020-01-28 07:29 | Outpatient (CLI) | payer MEDICARE, BC ==
[2020-01-28 08:32] LABS: ALBUMIN 4.3 g/dL (3.2-5.5); ALBUMIN/GLOBULIN RATIO 1.6 (1.0-2.2); BILIRUBIN,TOTAL 2.7 mg/dL (0.2-1.0); CALCIUM 9.3 mg/dL (8.5-10.3)
[2020-01-28 08:34] LABS: CREATININE,URINE 113.8 mg/dL; MICROALBUM/CREATININE RATIO,UR 2.6 ug/mg (<30.0); MICROALBUMIN,URINE 0.3 mg/dL (0-300.0)
[2020-01-28 08:55] LABS: HEMOGLOBIN A1c% 5.8 % (4.27-6.07)
== END 2020-01-28 07:30 | disposition home or self-care (01) ==
LOC: LAB 07:29
PROVIDERS: ATTEND Family Medicine
DX: E78.5 Hyperlipidemia, unspecified (principal); R79.89 Other specified abnormal findings of blood chemistry; E11.9 Type 2 diabetes mellitus without complications; D69.6 Thrombocytopenia, unspecified; I34.0 Nonrheumatic mitral (valve) insufficiency; I10 Essential (primary) hypertension
CPT/HCPCS: 36415; 80053; 82043; 82570; 83036

== ENCOUNTER 2020-05-02 08:46 | Outpatient (CLI) | payer MEDICARE, BC ==
[2020-05-02 10:15] LABS: CREATININE,URINE 96.6 mg/dL; MICROALBUM/CREATININE RATIO,UR 2.1 ug/mg (<30.0); MICROALBUMIN,URINE 0.2 mg/dL (0-300.0)
[2020-05-02 10:29] LABS: CALCIUM 9.2 mg/dL (8.5-10.3); CREATININE 0.9 mg/dL (0.6-1.2)
[2020-05-02 11:13] LABS: HEMOGLOBIN A1c% 5.8 % (4.27-6.07)
== END 2020-05-02 08:47 | disposition home or self-care (01) ==
LOC: LAB 08:46
PROVIDERS: ATTEND Family Medicine
DX: I10 Essential (primary) hypertension (principal); E11.9 Type 2 diabetes mellitus without complications; Z12.5 Encounter for screening for malignant neoplasm of prostate; R79.89 Other specified abnormal findings of blood chemistry
CPT/HCPCS: 36415; 80048; 82043; 82542; 82570; 83036; G0103; 84153

== ENCOUNTER 2020-09-27 07:35 | Outpatient (CLI) | payer MEDICARE, BC ==
[2020-09-27 07:55] LABS: BASOPHILS % (AUTO) 0.7 %; EOSINOPHILS # (AUTO) 0.1 10^3/uL (0.0-0.7); EOSINOPHILS % (AUTO) 1.3 %; HCT - HEMATOCRIT 43.7 % (42.0-52.0); HGB - HEMOGLOBIN 14.3 g/dL (14.0-18.0); LYMPHOCYTES # (AUTO) 1.2 10^3/uL (1.5-3.5); LYMPHOCYTES % (AUTO) 26.5 %; MEAN CORPUSCULAR HEMOGLOBIN 32.1 pg (27.0-31.0); MEAN CORPUSCULAR HGB CONC 32.7 g/dL (32.0-36.0); MEAN PLATELET VOLUME 11.3 fL (7.4-11.4); MONOCYTES # (AUTO) 0.4 10^3/uL (0.0-1.0); MONOCYTES % (AUTO) 9.4 %; NEUTROPHILS # (AUTO) 2.8 10^3/uL (1.5-6.6); NEUTROPHILS % (AUTO) 61.9 %; PLT - PLATELET COUNT 99 10^3/uL (130-450); RED BLOOD COUNT 4.46 10^6/uL (4.70-6.10); RED CELL DISTRIBUTION WIDTH 13.1 % (12.0-15.0); WHITE BLOOD COUNT 4.5 x10^3/uL (4.8-10.8)
[2020-09-27 08:11] LABS: CREATININE,URINE 81.4 mg/dL; MICROALBUM/CREATININE RATIO,UR 6.1 ug/mg (<30.0); MICROALBUMIN,URINE 0.5 mg/dL (0-300.0)
[2020-09-27 08:22] LABS: THYROID STIMULATING HORMONE 3.56 uIU/mL (0.34-5.60)
[2020-09-27 08:30] LABS: ALBUMIN 4.6 g/dL (3.2-5.5); ALKALINE PHOSPHATASE 67 IU/L (42-121); ALT ALANINE AMINOTRANSFERASE 34 IU/L (10-60); AST ASPARTATE AMINOTRANSFERASE 42 IU/L (10-42); BILIRUBIN,TOTAL 2.7 mg/dL (0.2-1.0); BUN - BLOOD UREA NITROGEN 30 mg/dL (6-20); CALCIUM 9.3 mg/dL (8.5-10.3); CARBON DIOXIDE - CO2 29 mmol/L (21-32); CHLORIDE 103 mmol/L (101-111); CHOL/HDL RATIO 2.4 (<5.0); CHOLESTEROL 128 mg/dL; CREATININE 0.9 mg/dL (0.6-1.2); GFR - MDRD 82 (>89); GLUCOSE 99 mg/dL (70-100); HDL CHOLESTEROL 54 mg/dL; POTASSIUM 3.8 mmol/L (3.5-5.0); SODIUM 141 mmol/L (135-145); TOTAL PROTEIN 6.9 g/dL (6.7-8.2); TRIGLYCERIDES 38 mg/dL
[2020-09-27 12:07] LABS: ESTIMATED AVERAGE GLUCOSE 114 mg/dL (70-100); HEMOGLOBIN A1c% 5.6 % (4.27-6.07)
== END 2020-09-27 07:36 | disposition home or self-care (01) ==
LOC: LAB 07:35
PROVIDERS: ATTEND Internal Medicine
DX: D69.3 Immune thrombocytopenic purpura (principal); I48.21 Permanent atrial fibrillation; I34.0 Nonrheumatic mitral (valve) insufficiency; I10 Essential (primary) hypertension; E11.9 Type 2 diabetes mellitus without complications; E04.1 Nontoxic single thyroid nodule; D61.818 Other pancytopenia; E78.5 Hyperlipidemia, unspecified
CPT/HCPCS: 36415; 80053; 80061; 82043; 82570; 83036; 83721; 84443; 85025

== ENCOUNTER 2020-10-24 08:24 | Outpatient (CLI) | payer MEDICARE, BC ==
--- NOTE | 2020-10-24 17:32 | Ultrasound Report ---
PROCEDURE: Head or Neck Soft Tissue INDICATIONS: THYROID NODULE TECHNIQUE: Real-time scanning was performed of the thyroid gland, with image documentation. COMPARISON: 10/12/2019 FINDINGS: Right: Thyroid lobe measures 4.7 x 1.4 x 1.6 cm, and contains multiple nodules.. Left: Thyroid lobe measures 4.9 x 1.4 x 1.4 cm, and contains a single nodule. Isthmus: 3 mm thick. Nodule number: 1 Location: Right upper pole Size: 0.6 x 0.4 x 0.5 cm, previously 0.5 x 0.4 x 0.5 cm. Composition: Solid Echogenicity: Hypoechoic Shape: wider than tall. Margins: Smooth Echogenic foci: Punctate Total points: 7 ACR TI-RADS category: Highly suspicious Nodule number: 2 Location: Right middle pole Size: 0.50 0.3 x 0.4 cm, previously 0.4 x 0.3 x 0.3 cm. Composition: Predominantly cystic Echogenicity: Markedly hypoechoic Shape: Wider than tall Margins: Smooth Echogenic foci: None Total points: 0 ACR TI-RADS category: Benign Nodule number: 3 Location: Right lower pole Size: 0.3 x 0.2 x 0.3 cm, previously 0.3 x 0.2 cm. Composition: Predominantly cystic Echogenicity: Markedly hypoechoic Shape: wider than tall. Margins: Smooth Echogenic foci: None Total points: 0 ACR TI-RADS category: Benign Nodule number: 4 Location: Left middle pole/lower pole Size: 0.5 x 0.4 x 0.5 cm, previously 0.5 x 0.5 x 0.4 cm Composition: Solid Echogenicity: Hyperechoic Shape: wider than tall. Margins: Smooth Echogenic foci: None Total points: 3 ACR TI-RADS category: Mildly suspicious IMPRESSION: Multinodular thyroid. Based on the presence of a 5 mm maximum diameter lesion in the rig ht upper pole, which has highly suspicious findings by ACR Ti-RADS criteria, follow-up ultrasound is recommended in one year. TI-RADS 1 (benign): 0 points. FNA not needed. TI-RADS 2 (not suspicious): 2 points. FNA not needed. TI-RADS 3 (mildly suspicious): 3 points. ? FNA if 2.5 cm or larger, follow up if 1.5 cm or larger (at 1, 3, and 5 years). TI-RADS 4 (moderately suspicious): 4-6 points. ? FNA if 1.5 cm or larger, follow up if 1 cm or larger (at 1, 2, 3, and 5 years). TI-RADS 5 (highly suspicious): 7 points or more. ? FNA if 1 cm or larger, follow up if 0.5 cm or larger (every year for 5 years). Reviewed by: Cameron Gil MD on 10/24/2020 4:31 PM [facility] Approved by: Cameron Gil MD on 10/24/2020 4:31 PM [facility] Station ID: [id number]
== END 2020-10-24 08:25 | disposition home or self-care (01) ==
LOC: DI 08:24
PROVIDERS: ATTEND Internal Medicine
DX: E04.2 Nontoxic multinodular goiter (principal)

== ENCOUNTER 2021-01-06 07:47 | Outpatient (CLI) | payer MEDICARE, BC ==
[2021-01-06 08:14] LABS: CALCIUM 9.3 mg/dL (8.5-10.3); CREATININE 0.8 mg/dL (0.6-1.2)
[2021-01-06 08:22] LABS: CREATININE,URINE 69.3 mg/dL; MICROALBUM/CREATININE RATIO,UR 14.4 ug/mg (<30.0)
[2021-01-06 10:30] LABS: ESTIMATED AVERAGE GLUCOSE 120 mg/dL (70-100); HEMOGLOBIN A1c% 5.8 % (4.27-6.07)
== END 2021-01-06 07:48 | disposition home or self-care (01) ==
LOC: LAB 07:47
PROVIDERS: ATTEND Internal Medicine
DX: E11.9 Type 2 diabetes mellitus without complications (principal)
CPT/HCPCS: 36415; 80048; 82043; 82570; 83036

== ENCOUNTER 2021-01-07 01:02 | Emergency (ER) | payer MEDICARE, BC ==
[2021-01-07 01:33] LABS: RAPID STREP SCREEN Negative (Negative)
--- NOTE | 2021-01-07 03:07 | ED Physician Documentation ---
PD HPI HEENT - Stated complaint Stated Complaint: SWOLLEN THROAT, TROUBLE SWALLOWING - Chief complaint Chief Complaint: Heent - History obtained from History obtained from: Patient - History of Present Illness Timing - onset: Enter time (18:30), Today Timing - details: Abrupt onset Pain level max: 0 Pain level now: 0 Location: Throat Improves: Nothing Worsens: Swalllowing Associated symptoms: Headache, Cough. No: Fever Similar symptoms before: Has not had sx before Recently seen: Not recently seen - Additional information Additional information: patient woke from a nap at approximately 6:30 PM this evening and noted difficulty swallowing when he tried to take a sip of water. He has not had this symptoms before. This symptoms has persisted since onset. He describes a sensation of fluid not transitioning from back of his throat when he tries to swallow as if the fluid is getting stuck before then trickling down further, although he feels as though he might aspirate when this happens. he denies nausea, vomiting. he has no other c/o. he has not tried to take any medications or solids due to concern that he might choke or aspirate in trying to do so. Review of Systems Constitutional: reports: Reviewed and negative Eyes: reports: Reviewed and negative Ears: reports: Reviewed and negative Nose: reports: Reviewed and negative Throat: reports: Reviewed and negative Cardiac: reports: Reviewed and negative Respiratory: reports: Reviewed and negative GI: reports: Reviewed and negative : reports: Reviewed and negative Musculoskeletal: denies: Neck pain Neurologic: denies: Generalized weakness, Focal weakness, Numbness, Difficulty speaking (denies difficulty speaking but perceives a slight change in his voice since symptom onset), Headache Endocrine: reports: Reviewed and negative PD PAST MEDICAL HISTORY - Past Medical History Cardiovascular: Hypertension, High cholesterol, Atrial fibrillation, Murmur, Valve disorder, Other Respiratory: Other Endocrine/Autoimmune: Type 2 diabetes GI: Colon polyps, Ulcerative colitis : None HEENT: None Psych: Anxiety Musculoskeletal: Osteoarthritis Derm: Eczema - Past Surgical History Past Surgical History: Yes General: Colonoscopy Cardiovascular: Other HEENT: Cataracts - Present Medications Home Medications: Ambulatory Orders Medication Instructions Recorded Confirmed Lactobacillus Rhamnosus GG 1 each PO DAILY 11/23/12 01/23/14 [Probiotic] Losartan [Cozaar] 50 mg PO DAILY 11/23/12 06/24/16 Metformin HCl [Glucophage Xr] 250 mg PO BID 11/23/12 06/24/16 Mometasone Furoate [Asmanex] 220 mcg IH HS 11/23/12 06/24/16 Multivitamin [Multivitamins] 1 each PO 11/23/12 01/23/14 clonazePAM [Clonazepam] 0.25 tab PO QID 11/23/12 06/24/16 Fluticasone [Flonase] 1 sprays ELIAZAR PRN 02/20/13 01/23/14 Loperamide HCl [Imodium A-D] 2 mg PO PRN 02/20/13 01/23/14 Rosuvastatin Calcium [Crestor] 5 mg PO QPM 09/04/13 06/24/16 Dicyclomine [Bentyl] 10 mg PO TID #15 capsule 12/01/16 Metoprolol Succinate [Toprol Xl] 01/03/19 Rivaroxaban [Xarelto] 01/03/19 - Allergies Allergies/Adverse Reactions: Allergies Allergy/AdvReac Type Severity Reaction Status Date / Time metronidazole [From Flagyl] AdvReac Nausea Verified 01/07/21 01:15 multiple antibiotics Allergy Rash Uncoded 12/01/16 01:55 azithromax AdvReac Intermediate Cramps Uncoded 12/01/16 01:55 - Social History Does the pt smoke?: No Smoking Status: Never smoker Does the pt drink ETOH?: No Does the pt have substance abuse?: No - Immunizations Immunizations are current?: Yes - POLST Patient has POLST: No PD ED PE NORMAL - Vitals Vital signs reviewed: Yes - General General: Alert and oriented X 3, No acute distress, Well developed/nourished - HEENT HEENT: Moist mucous membranes, Pharynx benign - Neck Neck: Supple, no meningeal sign - Respiratory Respiratory: No respiratory distress, Clear bilaterally - Abdomen Abdomen: Soft, Non tender - Derm Derm: Normal color, Warm and dry - Neuro Neuro: Alert and oriented X 3, magazine writer 2-12 intact, No motor deficit, No sensory deficit, Normal speech Eye Opening: Spontaneous Motor: Obeys Commands Verbal: Oriented GCS Score: 15 PD ED PE EXPANDED - Cardiac Cardiac: Irregularly irregular Results - Vitals Vitals: Vital Signs - 24 hr 01/07/21 01/07/21 01:12 07:00 Temperature 36.6 C Heart Rate 73 70 Respiratory 16 16 Rate Blood Pressure 162/96 H 146/92 H O2 Saturation 96 96 Oxygen O2 Source Room air - Labs Labs: Laboratory Tests 01/07/21 01/07/21 01/07/21 01:15 10:00 10:00 WBC 5.1 RBC 4.22 L Hgb 13.1 L Hct 41.1 L MCV 97.4 H MCH 31.0 MCHC 31.9 L RDW 13.5 Plt Count 92 L MPV 12.1 H Neut # (Auto) 4.1 Lymph # (Auto) 0.5 L Ness # (Auto) 0.3 Eos # (Auto) 0.1 Baso # (Auto) 0.0 Absolute Nucleated RBC 0.00 Nucleated RBC % 0.0 Sodium 138 Potassium 3.7 Chloride 103 Carbon Dioxide 26 Anion Gap 9.0 BUN 29 H Creatinine 0.7 Estimated GFR (MDRD) 110 Glucose 114 H Calcium 9.1 Total Bilirubin 2.6 H AST 34 ALT 40 Alkaline Phosphatase 58 Total Protein 6.7 Albumin 4.3 Globulin 2.4 Albumin/Globulin Ratio 1.8 Lipase 24 Nasal Adenovirus (PCR) Nasal B. parapertussis DNA (PCR) Nasal Coronavir 229E PCR Nasal Coronavir HKU1 PCR Nasal Coronavir NL63 PCR Nasal Coronavir OC43 PCR Nasal Enterovir/Rhinovir PCR Nasal Influenza B PCR Nasal Influenza A PCR Nasal Parainfluen 1 PCR Nasal Parainfluen 2 PCR Nasal Parainfluen 3 PCR Nasal Parainfluen 4 PCR Nasal RSV (PCR) Nasal B.pertussis DNA PCR Nasal C.pneumoniae (PCR) Eliazar Human Metapneumo PCR Nasal M.pneumoniae (PCR) Nasal SARS-CoV-2 (PCR) Group A Strep Rapid Negative 01/07/21 11:25 WBC RBC Hgb Hct MCV MCH MCHC RDW Plt Count MPV Neut # (Auto) Lymph # (Auto) Ness # (Auto) Eos # (Auto) Baso # (Auto) Absolute Nucleated RBC Nucleated RBC % Sodium Potassium Chloride Carbon Dioxide Anion Gap BUN Creatinine Estimated GFR (MDRD) Glucose Calcium Total Bilirubin AST ALT Alkaline Phosphatase Total Protein Albumin Globulin Albumin/Globulin Ratio Lipase Nasal Adenovirus (PCR) NOT DETECTED Nasal B. parapertussis DNA (PCR) NOT DETECTED Nasal Coronavir 229E PCR NOT DETECTED Nasal Coronavir HKU1 PCR NOT DETECTED Nasal Coronavir NL63 PCR NOT DETECTED Nasal Coronavir OC43 PCR NOT DETECTED Nasal Enterovir/Rhinovir PCR NOT DETECTED Nasal Influenza B PCR NOT DETECTED Nasal Influenza A PCR NOT DETECTED Nasal Parainfluen 1 PCR NOT DETECTED Nasal Parainfluen 2 PCR NOT DETECTED Nasal Parainfluen 3 PCR NOT DETECTED Nasal Parainfluen 4 PCR NOT DETECTED Nasal RSV (PCR) NOT DETECTED Nasal B.pertussis DNA PCR NOT DETECTED Nasal C.pneumoniae (PCR) NOT DETECTED Eliazar Human Metapneumo PCR NOT DETECTED Nasal M.pneumoniae (PCR) NOT DETECTED Nasal SARS-CoV-2 (PCR) NOT DETECTED Group A Strep Rapid - Rads (name of study) CTA head Radiology: Prelim report reviewed, See rad report CTA neck Radiology: Prelim report reviewed, See rad report PD MEDICAL DECISION MAKING - ED course Complexity details: reviewed old records (results of outpatient blood tests performed yesterday are reviewed), reviewed results, re-evaluated patient, considered differential, d/w patient ED course: presents with isolated c/o of difficulty swallowing. his description and the appearance of his attempts to swallow water (while I am at bedside) suggest oropharyngeal dysphagia. He does not have ptosis nor diplopia. He also notes that since symptom onset, he has had difficulty using his Spiriva, feels as though he is unable to take a deep breath in when using it. No concerning findings on CTA head/neck. I discussed this case with the neurologist contract engineer for [place] (Dr. Ayala, who says she is covering [place] overnight but works out of [facility]). Differential would include myasthenia gravis, CVA (unlikely given negative CTA head/neck, but recommends MRI), GBS (leal-carpenter variant); GI causes would be considered, as well. Dr. Ayala recommends MRI, NIF, and speech therapy evaluation. She says after the completion of these initial tests, if no diagnosis is achieved or suggested by the results, further testing would likely require higher level of care than [facility]. I discussed this case with Dr. Spear; she recommends transfer patient to higher level of care. Care of patient turned over to Dr. Brito at end of my shift pending disposition. Departure - Departure Disposition: 02 Transfer Acute Care Hosp Clinical Impression: Dysphagia Condition: Good Discharge Date/Time: 01/07/21 14:56
[2021-01-07] MEDS ORDERED: IOPAMIDOL-300 100 ML VIAL ONE (03:44)
[2021-01-07] MEDS ORDERED: IOPAMIDOL-300 100 ML VIAL IVP ONE (04:18)
[2021-01-07 07:42] VITALS: BP 146/92
--- NOTE | 2021-01-07 09:09 | CT Report ---
PROCEDURE: ANGIO HEAD W/WO INDICATIONS: Difficulty swallowing CONTRAST: Isovue 300, 80 ml TECHNIQUE: Precontrast 4.5 mm thick angled axial sections acquired from the foramen magnum to the vertex. Afte r the administration of intravenous contrast, 1 mm thick sections acquired through the [place] is. Postcontrast 4.5 mm thick sections then re-acquired from the foramen magnum to the vertex. 3-di mensional neuechs-tzdmtzqxo-ytemwctpzg (MIP) and/or volume rendering reformats were acquired of the c entral intracranial vasculature. For radiation dose reduction, the following was used: automated ex posure control, adjustment of mA and/or kV according to patient size. COMPARISON: None FINDINGS: Image quality: Excellent. Anterior circulation: Intracranial internal carotid arteries are normal in size and flow. The flow within the paired anterior cerebral arteries is normal and symmetric. The flow within the middle cer ebral arteries is normal and symmetric. The anterior communicating artery is seen. No aneurysms are seen. Posterior circulation: Visualized portions of the vertebral arteries demonstrate normal caliber, and join to form a normal appearing basilar artery. There is mild approximately 30% narrowing of the r ight P1 segment. Flow within the posterior cerebral arteries is normal and symmetric. No aneurysms a re seen. CSF spaces: Ventricles are normal in size and shape. Basal cisterns are patent. No extra-axial flu id collections. Brain: No midline shift. No intracranial bleeds or masses. Cervantes-white matter interface appears int act. Skull and face: Calvarium and facial bones appear intact, without suspicious lesions. Sinuses: Visualized sinuses and mastoids are clear. IMPRESSION: No hemodynamically significant stenosis of the major intracranial arterial vasculature. Nonhemodynamically significant approximately 30% stenosis of the right P1 segment origin. No acute intracranial abnormality. Reviewed by: Didier Sutherland MD on 01/07/2021 9:08 AM PDT Approved by: Didier Sutherland MD on 01/07/2021 9:08 AM PDT Station ID: [id number]
--- NOTE | 2021-01-07 09:15 | CT Report ---
PROCEDURE: ANGIO NECK W INDICATIONS: difficulty swallowing CONTRAST: IV CONTRAST: Isovue 300 ml: 80 PO CONTRAST: *NO PO CONTRAST TECHNIQUE: After the administration of intravenous contrast, 1.5 mm axial sections acquired from the aortic arch to the [place]. Coronal 3-D maximum intensity projection (MIP) and/or volume rendering ref ormats were then performed. For radiation dose reduction, the following was used: automated exposur e control, adjustment of mA and/or kV according to patient size. COMPARISON: None. FINDINGS: Image quality: Excellent. Carotid system: The great vessels demonstrate a conventional anatomy as they arise from the aortic a rc. The origins of the common carotid arteries appear patent. The common carotid arteries demonstr ate normal calibers and courses. The bifurcation regions appear normal bilaterally. The internal ca rotid arteries demonstrate normal caliber and course. Posterior circulation: The origins of the vertebral arteries appear patent. The more superior porti ons of the vertebral arteries demonstrate normal course and caliber. They join to form a normal appe aring basilar artery. Soft tissues: Visualized neck soft tissues demonstrate no suspicious abnormalities. The thyroid is normal in size and there are no incidental findings. Bones: No suspicious bony lesions. Visualized cervical spine appears normally aligned. IMPRESSION: No hemodynamically significant stenosis of the major extracranial arterial vasculature. The estimate of stenosis included in the report of the imaging study was calculated using the NASCET method CLINICAL RECOMMENDATION STATEMENTS: In patients <35 years with an ITN detected on CT, MRI, or extrathyroidal ultrasound, the Committee re commends further evaluation with dedicated thyroid ultrasound if the nodule is ?1 cm and has no suspi cious imaging features, and if the patient has normal life expectancy. In patients ?35 years with an ITN detected on CT, MRI, or extrathyroidal ultrasound, the Committee re commends further evaluation with dedicated thyroid ultrasound if the nodule is ?1.5 cm and has no jack picious imaging features, and if the patient has normal life expectancy. (ACR, 2014) Reviewed by: Didier Sutherland MD on 01/07/2021 9:14 AM PDT Approved by: Didier Sutherland MD on 01/07/2021 9:14 AM PDT Station ID: [id number]
[2021-01-07] MEDS ORDERED: LORazepam 2 MG/ML VIAL IVP STA (09:28)
[2021-01-07] MEDS ORDERED: SODIUM CHLORIDE 0.9% 1,000 ML IV STA (09:28)
[2021-01-07 10:21] LABS: BASOPHILS % (AUTO) 0.6 %; EOSINOPHILS # (AUTO) 0.1 10^3/uL (0.0-0.7); HCT - HEMATOCRIT 41.1 % (42.0-52.0); HGB - HEMOGLOBIN 13.1 g/dL (14.0-18.0); LYMPHOCYTES # (AUTO) 0.5 10^3/uL (1.5-3.5); LYMPHOCYTES % (AUTO) 10.7 %; MEAN CORPUSCULAR HGB CONC 31.9 g/dL (32.0-36.0); MEAN CORPUSCULAR VOLUME 97.4 fL (80.0-94.0); MEAN PLATELET VOLUME 12.1 fL (7.4-11.4); MONOCYTES # (AUTO) 0.3 10^3/uL (0.0-1.0); MONOCYTES % (AUTO) 6.1 %; NEUTROPHILS # (AUTO) 4.1 10^3/uL (1.5-6.6); NEUTROPHILS % (AUTO) 80.4 %; PLT - PLATELET COUNT 92 10^3/uL (130-450); RED BLOOD COUNT 4.22 10^6/uL (4.70-6.10); RED CELL DISTRIBUTION WIDTH 13.5 % (12.0-15.0); WHITE BLOOD COUNT 5.1 x10^3/uL (4.8-10.8)
[2021-01-07 10:31] LABS: ALBUMIN 4.3 g/dL (3.2-5.5); ALBUMIN/GLOBULIN RATIO 1.8 (1.0-2.2); BILIRUBIN,TOTAL 2.6 mg/dL (0.2-1.0); CALCIUM 9.1 mg/dL (8.5-10.3); CREATININE 0.7 mg/dL (0.6-1.2); POTASSIUM 3.7 mmol/L (3.5-5.0); TOTAL PROTEIN 6.7 g/dL (6.7-8.2)
--- NOTE | 2021-01-07 12:30 | ED Physician Documentation ---
ED Addendum - Addendum Addendum: 01/07/21 13:22 Care was turned over by Dr. Puente to facilitate transfer to [facility]. Consultation with the neurologist recommended a videoscopic swallow study which we are unable to obtain at [facility]. MRI MRA of the brain is pending the time of this dictation but the patient has been accepted by Dr. Mina at [place] and patient is agreeable to transfer. Departure - Departure Disposition: 02 Transfer Acute Care Hosp Clinical Impression: Dysphagia Condition: Good
[2021-01-07 12:50] LABS: B. PARAPERTUSSIS- RESP PCR PAN NOT DETECTED; B. PERTUSSIS- RESP PCR PANEL NOT DETECTED; C. PNEUMONIAE- RESP PCR PANEL NOT DETECTED; CORONAVIRUS 229E-RESP PCR NOT DETECTED; CORONAVIRUS HKU1-RESP PCR NOT DETECTED; CORONAVIRUS NL63-RESP PCR NOT DETECTED; CORONAVIRUS OC43-RESP PCR NOT DETECTED; HUMAN METAPNEUMOVIRUS NOT DETECTED; INFLUENZA A- RESP PCR PANEL NOT DETECTED; INFLUENZA B - RESP PCR PANEL NOT DETECTED; M. PNEUMONIAE- RESP PCR PANEL NOT DETECTED; PARAINFLUENZA VIRUS 1 NOT DETECTED; PARAINFLUENZA VIRUS 2 NOT DETECTED; PARAINFLUENZA VIRUS 3 NOT DETECTED; PARAINFLUENZA VIRUS 4 NOT DETECTED; RHINOVIRUS/ENTEROVIRUS NOT DETECTED; RSV- RESP PCR PANEL NOT DETECTED; SARS-CoV-2 -RESP PCR PANEL NOT DETECTED
--- NOTE | 2021-01-07 13:47 | MRI Report ---
PROCEDURE: Brain W/O INDICATIONS: diff swallowing TECHNIQUE: Noncontrast axial T1 spin echo, axial T2 fast spin echo, sagittal and axial FLAIR, coronal T2 fast sp in echo, axial gradient echo, axial diffusion and ADC through the brain. COMPARISON: CT angioma head and neck 01/07/2021 FINDINGS: Image quality: Excellent. The ventricular system and cortical sulci demonstrate atrophy, consistent for patient's stated age. There are areas of hyperintense T2/FLAIR signal in the periventricular and subcortical white matter. There is no acute intra or extra-axial fluid collection. No acute hemorrhage, mass lesion or midlin e shift. Brainstem is unremarkable. There are no areas of restricted diffusion. Mild increased CSF signal is noted along the superior cerebellum. Globes are symmetrical. Sinuses are aerated. Osseous s tructures are intact. IMPRESSION: 1. No acute intracranial process. Nor restricted diffusion to indicate acute ischemia. 2. Mild atrophy and chronic microvascular ischemia. 3. Increased CSF signal along the superior cerebellum suspicious for arachnoid cyst. Reviewed by: Penny Pendleton MD on 01/07/2021 1:46 PM PDT Approved by: Penny Pendleton MD on 01/07/2021 1:46 PM PDT Station ID: [id number]
--- NOTE | 2021-01-07 14:21 | MRI Report ---
PROCEDURE: Angio Brain W/O (MRA) INDICATIONS: DIFFICULTY SWALLOWING, CONCERN FOR cva TECHNIQUE: Noncontrast axial 3-D xhbs-wl-[id number] MR angiogram, with 3-dimensional maximum intensity projection (M IP) reformats of the internal carotid arteries and posterior circulation then performed. COMPARISON: MRA brain 01/07/2021, CTA head and neck 01/07/2021 FINDINGS: Image quality: Excellent. Anterior circulation: Intracranial internal carotid arteries demonstrate normal size and intralumina l flow signal. The flow within the paired anterior cerebral arteries is normal and symmetric. The f low within the middle cerebral arteries is normal and symmetric. The anterior communicating artery i s seen. No stenoses, occlusions, or aneurysms. Posterior circulation: Visualized portions of the vertebral arteries demonstrate normal caliber, and join to form a normal appearing basilar artery. The flow within the posterior cerebral arteries is normal and symmetric. No stenoses, occlusions, or aneurysms. Vertebral arteries are codominant. IMPRESSION: No areas of hemodynamically significant stenosis, vascular occlusion or aneurysmal dilation within th e anterior or posterior circulation. Reviewed by: Penny Pendleton MD on 01/07/2021 2:20 PM PDT Approved by: Penny Pendleton MD on 01/07/2021 2:20 PM PDT Station ID: [id number]
== END 2021-01-07 14:56 | disposition short-term general hospital (02) ==
LOC: ED 01:02
DX: R13.10 Dysphagia, unspecified (principal); I10 Essential (primary) hypertension; E11.9 Type 2 diabetes mellitus without complications; Z79.84 Long term (current) use of oral hypoglycemic drugs; Z79.01 Long term (current) use of anticoagulants; I48.91 Unspecified atrial fibrillation; Z20.822 Contact with and (suspected) exposure to COVID-19
CPT/HCPCS: 36415; 70496; 70498; 70544; 70551; 80053; 83690; 85025; 87070; 87430; 87631; 96374; 99284; 99285; J2060; Q9967; 0202U

== ENCOUNTER 2021-03-28 07:46 | Outpatient (CLI) | payer MEDICARE, BC ==
[2021-03-28 08:28] LABS: EOSINOPHILS # (AUTO) 0.1 10^3/uL (0.0-0.7); EOSINOPHILS % (AUTO) 2.4 %; HCT - HEMATOCRIT 43.5 % (42.0-52.0); HGB - HEMOGLOBIN 14.4 g/dL (14.0-18.0); LYMPHOCYTES % (AUTO) 24.8 %; MEAN CORPUSCULAR HEMOGLOBIN 32.2 pg (27.0-31.0); MEAN CORPUSCULAR HGB CONC 33.1 g/dL (32.0-36.0); MEAN CORPUSCULAR VOLUME 97.3 fL (80.0-94.0); MEAN PLATELET VOLUME 11.4 fL (7.4-11.4); MONOCYTES # (AUTO) 0.4 10^3/uL (0.0-1.0); MONOCYTES % (AUTO) 10.5 %; NEUTROPHILS # (AUTO) 2.6 10^3/uL (1.5-6.6); NEUTROPHILS % (AUTO) 61.1 %; PLT - PLATELET COUNT 93 10^3/uL (130-450); RED BLOOD COUNT 4.47 10^6/uL (4.70-6.10); RED CELL DISTRIBUTION WIDTH 13.8 % (12.0-15.0); WHITE BLOOD COUNT 4.2 x10^3/uL (4.8-10.8)
[2021-03-28 08:38] LABS: CREATININE,URINE 96.9 mg/dL; MICROALBUM/CREATININE RATIO,UR 15.5 ug/mg (<30.0); MICROALBUMIN,URINE 1.5 mg/dL (0-300.0)
[2021-03-28 08:39] LABS: ALBUMIN 4.3 g/dL (3.2-5.5); ALBUMIN/GLOBULIN RATIO 1.6 (1.0-2.2); ALKALINE PHOSPHATASE 58 IU/L (42-121); ALT ALANINE AMINOTRANSFERASE 35 IU/L (10-60); AST ASPARTATE AMINOTRANSFERASE 35 IU/L (10-42); BUN - BLOOD UREA NITROGEN 32 mg/dL (6-20); CARBON DIOXIDE - CO2 29 mmol/L (21-32); CHLORIDE 102 mmol/L (101-111); CHOL/HDL RATIO 2.3 (<5.0); CHOLESTEROL 123 mg/dL; CREATININE 0.9 mg/dL (0.6-1.2); GFR - MDRD 82 (>89); GLUCOSE 104 mg/dL (70-100); HDL CHOLESTEROL 53 mg/dL; POTASSIUM 3.9 mmol/L (3.5-5.0); SODIUM 139 mmol/L (135-145); TRIGLYCERIDES 30 mg/dL
[2021-03-28 08:49] LABS: THYROID STIMULATING HORMONE 3.14 uIU/mL (0.34-5.60)
[2021-03-28 13:38] LABS: ESTIMATED AVERAGE GLUCOSE 120 mg/dL (70-100); HEMOGLOBIN A1c% 5.8 % (4.27-6.07)
== END 2021-03-28 07:47 | disposition home or self-care (01) ==
LOC: LAB 07:46
PROVIDERS: ATTEND Internal Medicine
DX: E11.9 Type 2 diabetes mellitus without complications (principal); N40.0 Benign prostatic hyperplasia without lower urinary tract symptoms; E04.1 Nontoxic single thyroid nodule; D69.3 Immune thrombocytopenic purpura
CPT/HCPCS: 36415; 80053; 80061; 82043; 82570; 83036; 83721; 84153; 84443; 85025

== ENCOUNTER 2021-08-02 08:54 | Emergency (ER) | payer MEDICARE, BC ==
--- NOTE | 2021-08-02 09:28 | ED Physician Documentation ---
History of Present Illness - Stated complaint Stated Complaint: RT LEG PX - Chief complaint Chief Complaint: Ext Problem - History obtained from History obtained from: Patient, Family - History of Present Illness Timing: How many days ago (1) Pain level max: 9 Pain level now: 6 - Additonal information Additional information: Patient is a 76-year-old male who presents to the emergency department complaining of right lower extremity swelling and pain. He had a venous seal procedure done in [place] on July 21. He is on Xarelto for atrial fibrillation. Had an ultrasound done 3 days after the procedure which showed no DVT at that time. He states the swelling and pain have continued to increase since that time. Better with Vicodin, Worse with movement and palpation. Review of Systems Constitutional: denies: Fever, Chills Cardiac: denies: Chest pain / pressure, Palpitations Respiratory: denies: Dyspnea, Cough, Wheezing GI: denies: Abdominal Pain, Nausea, Vomiting, Diarrhea Musculoskeletal: denies: Neck pain, Back pain Neurologic: denies: Headache PD PAST MEDICAL HISTORY - Past Medical History Past Medical History: Yes Cardiovascular: Hypertension, High cholesterol, Atrial fibrillation, Murmur, Valve disorder, Other Respiratory: Other Endocrine/Autoimmune: Type 2 diabetes GI: Colon polyps, Ulcerative colitis : None HEENT: None Psych: Anxiety Musculoskeletal: Osteoarthritis Derm: Eczema - Past Surgical History Past Surgical History: Yes General: Colonoscopy Cardiovascular: Other HEENT: Cataracts - Present Medications Home Medications: Ambulatory Orders Medication Instructions Recorded Confirmed Lactobacillus Rhamnosus GG 1 each PO DAILY 11/23/12 01/23/14 [Probiotic] Losartan [Cozaar] 50 mg PO DAILY 11/23/12 06/24/16 Metformin HCl [Glucophage Xr] 250 mg PO BID 11/23/12 06/24/16 Mometasone Furoate [Asmanex] 220 mcg IH HS 11/23/12 06/24/16 Multivitamin [Multivitamins] 1 each PO 11/23/12 01/23/14 clonazePAM [Clonazepam] 0.25 tab PO QID 11/23/12 06/24/16 Fluticasone [Flonase] 1 sprays ELIAZAR PRN 02/20/13 01/23/14 Loperamide HCl [Imodium A-D] 2 mg PO PRN 02/20/13 01/23/14 Rosuvastatin Calcium [Crestor] 5 mg PO QPM 05/12/14 03/01/17 Dicyclomine [Bentyl] 10 mg PO TID #15 capsule 12/01/16 Metoprolol Succinate [Toprol Xl] 01/03/19 Rivaroxaban [Xarelto] 01/03/19 HYDROcod/ACETAM 5/325 [[place] 5/325] 1 - 2 ea PO Q6H PRN #14 tablet 08/02/21 - Allergies Allergies/Adverse Reactions: Allergies Allergy/AdvReac Type Severity Reaction Status Date / Time metronidazole [From Flagyl] AdvReac Nausea Verified 08/02/21 09:13 multiple antibiotics Allergy Rash Uncoded 08/02/21 09:13 azithromax AdvReac Intermediate Cramps Uncoded 08/02/21 09:13 - Social History Does the pt smoke?: No Smoking Status: Never smoker Does the pt drink ETOH?: No Does the pt have substance abuse?: No - Immunizations Immunizations are current?: Yes - POLST Patient has POLST: No PD ED PE NORMAL - Vitals Vital signs reviewed: Yes - General General: Alert and oriented X 3, No acute distress - HEENT HEENT: Moist mucous membranes - Neck Neck: Supple, no meningeal sign - Cardiac Cardiac: RRR - Respiratory Respiratory: No respiratory distress, Clear bilaterally - Derm Derm: Warm and dry - Extremities Extremities: Other (Mild erythema and swelling on the medial aspect of the right lower extremity from the mid calf to the mid thigh. No increased warmth. Blanches easily. There is tenderness along the same aspect.) - Neuro Neuro: Alert and oriented X 3 - Psych Psych: Normal mood, Normal affect Results - Vitals Vitals: Vital Signs - 24 hr 08/02/21 09:03 Temperature 37.1 C Heart Rate 56 L Respiratory 20 Rate Blood Pressure 187/96 H O2 Saturation 96 Oxygen O2 Source Room air - Rads (name of study) Duplex ultrasound right lower extremity Radiology: Final report received, EMP read contemporaneously, See rad report (No DVT) PD MEDICAL DECISION MAKING - ED course Complexity details: reviewed results, re-evaluated patient, considered differential, d/w patient ED course: No acute findings on ultrasound. Patient appears to be having inflammatory response. Does not appear to be infected. We will hold antibiotics. Will place on pain medication for home. Given a dose of steroid as well. Patient will follow up with his doctor for further care. Patient counseled regarding signs and symptoms for which I believe and urgent re-evaluation would be necessary. Patient with good understanding of and agreement to plan and is comfortable going home at this time This document was made in part using voice recognition software. While efforts are made to proofread this document, sound alike and grammatical errors may occur. Departure - Departure Disposition: 01 Home, Self Care Clinical Impression: Leg pain Qualifiers: Laterality: right Qualified Code(s): M79.604 - Pain in right leg Condition: Good Instructions: ED Acute Pain [facility] Follow-Up: Yves Dyson MD [Primary Care Provider] - Within 1 week Prescriptions: HYDROcod/ACETAM 5/325 [[place] 5/325] 1 - 2 ea PO Q6H PRN #14 tablet PRN Reason: Pain Comments: You appear to be having a inflammatory response to the venaseal procedure. We will prescribe pain medication for you for a few days. Return if you worsen. Follow-up with your doctor for further care. Your ultrasound does not show any blood clots in your leg. Your prescriptions were sent to the [facility] pharmacy I am prescribing a short course of narcotic pain medication for you. These are potentially dangerous and addictive medications that should be used carefully. These medications may constipate you. Take an rbmb-nyc-rvzwulx stool softener (docusate) twice daily with plenty of water while taking these medications. If you go 24 hours without a bowel movement, take tklb-goz-otoeqrm miralax, per package instructions. Do not drink or drive while taking these medications. If you received narcotic or sedating medications while in the emergency department, do not drive for 24 hours. Store this medication in a safe, secure place and out of reach of children. It is a violation of federal law to give or sell this medication to another person or to use in a manner other than prescribed. The ED will not refill narcotic prescriptions, including prescriptions lost or stolen. To dispose of unwanted medications: 1. [facility] at [address] in [place] has a medication drop box. They accept prescription medications (in pill form) Wednesday through Wednesday 9:00 a.m. to 5:00 p.m. 2. [facility] [employer] accepts prescription medications (in pill form only) for disposal year round. Call for more information. 3. Contact the [facility] for the next [facility] sponsored prescription drug collection event. , [phone], or [phone];
[2021-08-02] MEDS ORDERED: DEXAMETHASONE 10 MG/ML VIAL PO STA (10:23)
[2021-08-02 10:33] VITALS: BP 153/71
--- NOTE | 2021-08-02 10:33 | Ultrasound Report ---
PROCEDURE: Duplex Ext Veins Right INDICATIONS: RLE swelling s/p venaseal procedure TECHNIQUE: Real-time imaging, as well as color and pulse Doppler interrogation, were performed of the lower extr emity deep veins from the inguinal ligament to the popliteal fossa. COMPARISON: None. FINDINGS: The deep veins are normally compressible, and free of intraluminal thrombus. Color and pu lse Doppler demonstrate normal phasic intraluminal flow. There is normal augmentation response to di stal compression maneuver. The venoseal is seen 5 cm from the common femoral vein origin. IMPRESSION: No findings of deep venous thrombosis are seen. Note: Concordant preliminary findings given by the lightning rod installer upon the completion of the examination to Dr. Ness at 10:22 AM on 08/02/2021. Reviewed by: Brennan Cabrera MD on 08/02/2021 9:32 AM BOOGIE Approved by: Brennan Cabrera MD on 08/02/2021 9:32 AM BOOGIE Station ID: [id number]
== END 2021-08-02 10:37 | disposition home or self-care (01) ==
LOC: ED 08:54
DX: M79.604 Pain in right leg (principal); I48.91 Unspecified atrial fibrillation; Z79.01 Long term (current) use of anticoagulants; E11.9 Type 2 diabetes mellitus without complications; Z79.84 Long term (current) use of oral hypoglycemic drugs
CPT/HCPCS: 99282; 99284

== ENCOUNTER 2021-08-07 08:09 | Outpatient (CLI) | payer MEDICARE, BC ==
[2021-08-07 08:29] LABS: BASOPHILS # (AUTO) 0.1 10^3/uL (0.0-0.1); EOSINOPHILS # (AUTO) 0.2 10^3/uL (0.0-0.7); EOSINOPHILS % (AUTO) 4.2 %; HCT - HEMATOCRIT 44.2 % (42.0-52.0); HGB - HEMOGLOBIN 14.4 g/dL (14.0-18.0); LYMPHOCYTES # (AUTO) 1.1 10^3/uL (1.5-3.5); LYMPHOCYTES % (AUTO) 23.5 %; MEAN CORPUSCULAR HEMOGLOBIN 31.9 pg (27.0-31.0); MEAN CORPUSCULAR HGB CONC 32.6 g/dL (32.0-36.0); MEAN CORPUSCULAR VOLUME 97.8 fL (80.0-94.0); MEAN PLATELET VOLUME 10.9 fL (7.4-11.4); MONOCYTES # (AUTO) 0.5 10^3/uL (0.0-1.0); MONOCYTES % (AUTO) 9.4 %; NEUTROPHILS % (AUTO) 61.7 %; PLT - PLATELET COUNT 123 10^3/uL (130-450); RED BLOOD COUNT 4.52 10^6/uL (4.70-6.10); RED CELL DISTRIBUTION WIDTH 13.1 % (12.0-15.0); WHITE BLOOD COUNT 4.8 x10^3/uL (4.8-10.8)
[2021-08-07 08:46] LABS: ALBUMIN 4.1 g/dL (3.2-5.5); ALBUMIN/GLOBULIN RATIO 1.5 (1.0-2.2); ALKALINE PHOSPHATASE 71 IU/L (42-121); ALT ALANINE AMINOTRANSFERASE 33 IU/L (10-60); AST ASPARTATE AMINOTRANSFERASE 29 IU/L (10-42); BUN - BLOOD UREA NITROGEN 28 mg/dL (6-20); CARBON DIOXIDE - CO2 30 mmol/L (21-32); CHLORIDE 102 mmol/L (101-111); CHOL/HDL RATIO 2.3 (<5.0); CHOLESTEROL 114 mg/dL; CREATININE 0.9 mg/dL (0.6-1.2); GFR - MDRD 82 (>89); GLUCOSE 107 mg/dL (70-100); HDL CHOLESTEROL 49 mg/dL; LDL CHOLESTEROL,CALCULATED 55 mg/dL; LDL/HDL RATIO 1.1 (<3.6); SODIUM 139 mmol/L (135-145); TOTAL PROTEIN 6.8 g/dL (6.7-8.2); TRIGLYCERIDES 48 mg/dL; VLDL CHOLESTEROL 10 mg/dL
[2021-08-07 08:55] LABS: THYROID STIMULATING HORMONE 2.72 uIU/mL (0.34-5.60)
== END 2021-08-07 08:10 | disposition home or self-care (01) ==
LOC: LAB 08:09
PROVIDERS: ATTEND Internal Medicine
DX: E11.9 Type 2 diabetes mellitus without complications (principal); E04.1 Nontoxic single thyroid nodule; I10 Essential (primary) hypertension; E78.5 Hyperlipidemia, unspecified
CPT/HCPCS: 36415; 80053; 80061; 81599; 83036; 83721; 84443; 85025

== ENCOUNTER 2022-02-23 09:15 | Outpatient (CLI) | payer MEDICARE, BC ==
[2022-02-23 09:59] LABS: CREATININE,URINE 76.3 mg/dL; MICROALBUM/CREATININE RATIO,UR 10.5 ug/mg (<30.0); MICROALBUMIN,URINE 0.8 mg/dL (0-300.0)
[2022-02-23 10:13] LABS: BUN - BLOOD UREA NITROGEN 28 mg/dL (6-20); CALCIUM 9.4 mg/dL (8.5-10.3); CARBON DIOXIDE - CO2 29 mmol/L (21-32); CHLORIDE 105 mmol/L (101-111); CHOL/HDL RATIO 2.3 (<5.0); CHOLESTEROL 111 mg/dL; GFR - MDRD 73 (>89); GLUCOSE 100 mg/dL (70-100); HDL CHOLESTEROL 48 mg/dL; POTASSIUM 3.8 mmol/L (3.5-5.0); SODIUM 141 mmol/L (135-145); TRIGLYCERIDES 22 mg/dL
[2022-02-23 10:24] LABS: THYROID STIMULATING HORMONE 2.76 uIU/mL (0.34-5.60)
[2022-02-23 11:24] LABS: ESTIMATED AVERAGE GLUCOSE 126 mg/dL (70-100)
== END 2022-02-23 09:16 | disposition home or self-care (01) ==
LOC: LAB 09:15
PROVIDERS: ATTEND Internal Medicine
DX: E11.9 Type 2 diabetes mellitus without complications (principal); E78.5 Hyperlipidemia, unspecified; N40.0 Benign prostatic hyperplasia without lower urinary tract symptoms; I48.21 Permanent atrial fibrillation
CPT/HCPCS: 36415; 80048; 80061; 82043; 82570; 83036; 83721; 84153; 84443

== ENCOUNTER 2022-02-24 12:31 | Emergency (ER) | payer MEDICARE, BC ==
[2022-02-24 12:56] LABS: BASOPHILS % (AUTO) 0.4 %; EOSINOPHILS % (AUTO) 0.2 %; HCT - HEMATOCRIT 43.1 % (42.0-52.0); HGB - HEMOGLOBIN 14.2 g/dL (14.0-18.0); LYMPHOCYTES # (AUTO) 0.8 10^3/uL (1.5-3.5); LYMPHOCYTES % (AUTO) 15.8 %; MEAN CORPUSCULAR HEMOGLOBIN 31.3 pg (27.0-31.0); MEAN CORPUSCULAR HGB CONC 32.9 g/dL (32.0-36.0); MEAN CORPUSCULAR VOLUME 95.1 fL (80.0-94.0); MEAN PLATELET VOLUME 11.8 fL (7.4-11.4); MONOCYTES # (AUTO) 0.4 10^3/uL (0.0-1.0); MONOCYTES % (AUTO) 7.6 %; NEUTROPHILS # (AUTO) 3.7 10^3/uL (1.5-6.6); NEUTROPHILS % (AUTO) 75.8 %; PLT - PLATELET COUNT 94 10^3/uL (130-450); RED BLOOD COUNT 4.53 10^6/uL (4.70-6.10); RED CELL DISTRIBUTION WIDTH 13.2 % (12.0-15.0); WHITE BLOOD COUNT 4.9 x10^3/uL (4.8-10.8)
[2022-02-24] MEDS ORDERED: iohexoL-300 100 ML VIAL ONE (13:11)
--- NOTE | 2022-02-24 13:14 | XRAY Report ---
PROCEDURE: Chest 1 View X-Ray INDICATIONS: Chest Pain TECHNIQUE: One view of the chest was acquired. COMPARISON: Chest x-ray 8 01/23/2014 FINDINGS: Surgical changes and devices: None. Lungs and pleura: No pneumothorax. Lungs are hyperinflated suggestive COPD. There is blunting of t he left costophrenic angle. Mediastinum: Mediastinal contours appear normal. Heart size is enlarged. Bones and chest wall: No suspicious bony lesions. Overlying soft tissues appear unremarkable. IMPRESSION: Blunting of the left costophrenic angle suggestive of scarring versus trace effusions. Reviewed by: Penny Pendleton MD on 02/24/2022 1:13 PM PDT Approved by: Penny Pendleton MD on 02/24/2022 1:13 PM PDT Station ID: [id number]
[2022-02-24 13:16] LABS: ALBUMIN 4.6 g/dL (3.2-5.5); ALBUMIN/GLOBULIN RATIO 1.8 (1.0-2.2); BILIRUBIN,TOTAL 3.5 mg/dL (0.2-1.0); CALCIUM 9.3 mg/dL (8.5-10.3); CREATININE 0.8 mg/dL (0.6-1.2); POTASSIUM 3.7 mmol/L (3.5-5.0); TOTAL PROTEIN 7.2 g/dL (6.7-8.2)
--- NOTE | 2022-02-24 13:39 | ED Physician Documentation ---
History of Present Illness - Stated complaint Stated Complaint: ABN AORTA - Chief complaint Chief Complaint: Cardiac - Additonal information Additional information: 76-year-old male was referred to the emergency department for evaluation of a pulsatile abdominal mass. Patient reports that about 4 days ago he began having a burning pain in his lower abdomen. He associated it with eating spicy foods but the use of Maalox and pantoprazole did not improve it. He went to a local walk-in clinic where the provider noted the abdominal mass which the patient reports is new for him and thus he is referred to the ER for further evaluation. He denies chest pain. He denies shortness of air. He denies that the pain radiates to his back. This gentleman is tall and lanky. He reports he has been evaluated for Marfan's in the past but was told he did not have the syndrome. Past medical history is most significant for atrial fibrillation, hypertension and hyperlipidemia. He has a history of ablation but that failed. Meds as needed clonazepam, losartan, Metroprolol, Gloria statin, Xarelto. Review of Systems Constitutional: denies: Fever, Chills Throat: reports: Reviewed and negative Cardiac: reports: Other (Palpable abdominal mass) GI: reports: Other (Palpable abdominal pulsatile mass). denies: Hematemesis, Bloody / black stool : reports: Reviewed and negative Skin: reports: Reviewed and negative Musculoskeletal: reports: Reviewed and negative PD PAST MEDICAL HISTORY - Past Medical History Past Medical History: Yes Cardiovascular: Hypertension, High cholesterol, Atrial fibrillation, Murmur, Valve disorder, Other Respiratory: Other Endocrine/Autoimmune: Type 2 diabetes GI: Colon polyps, Ulcerative colitis : None HEENT: None Psych: Anxiety Musculoskeletal: Osteoarthritis Derm: Eczema - Past Surgical History Past Surgical History: Yes General: Colonoscopy Cardiovascular: Other HEENT: Cataracts - Present Medications Home Medications: Ambulatory Orders Medication Instructions Recorded Confirmed Lactobacillus Rhamnosus GG 1 each PO DAILY 11/23/12 01/23/14 [Probiotic] Losartan [Cozaar] 50 mg PO DAILY 11/23/12 06/24/16 Metformin HCl [Glucophage Xr] 250 mg PO BID 11/23/12 06/24/16 Mometasone Furoate [Asmanex] 220 mcg IH HS 11/23/12 06/24/16 Multivitamin [Multivitamins] 1 each PO 11/23/12 01/23/14 clonazePAM [Clonazepam] 0.25 tab PO QID 11/23/12 06/24/16 Fluticasone [Flonase] 1 sprays ELIAZAR PRN 02/20/13 01/23/14 Loperamide HCl [Imodium A-D] 2 mg PO PRN 02/20/13 01/23/14 Rosuvastatin Calcium [Crestor] 5 mg PO QPM 09/04/13 06/24/16 Dicyclomine [Bentyl] 10 mg PO TID #15 capsule 12/01/16 Metoprolol Succinate [Toprol Xl] 01/03/19 Rivaroxaban [Xarelto] 01/03/19 HYDROcod/ACETAM 5/325 [Wiggins 5/325] 1 - 2 ea PO Q6H PRN #14 tablet 08/02/21 - Allergies Allergies/Adverse Reactions: Allergies Allergy/AdvReac Type Severity Reaction Status Date / Time metronidazole [From Flagyl] AdvReac Nausea Verified 08/02/21 09:13 multiple antibiotics Allergy Rash Uncoded 08/02/21 09:13 azithromax AdvReac Intermediate Cramps Uncoded 08/02/21 09:13 - Social History Does the pt smoke?: No Smoking Status: Never smoker Does the pt drink ETOH?: No Does the pt have substance abuse?: No - Immunizations Immunizations are current?: Yes - POLST Patient has POLST: No PD ED PE NORMAL - General General: Alert and oriented X 3, No acute distress. No: Well developed/nourished (Tall thin lanky gentleman.) - HEENT HEENT: Atraumatic, Moist mucous membranes - Neck Neck: Supple, no meningeal sign, No adenopathy - Cardiac Cardiac: RRR, No murmur, Other (Pectus excavated him) - Respiratory Respiratory: No respiratory distress, Clear bilaterally - Abdomen Abdomen: Normal bowel sounds, Soft, Other (Pulsatile abdominal mass palpated below the right rib margins. Nontender to palpation. 2+ femoral pulses bilaterally. 2+ pedal pulses bilaterally.) - Back Back: No CVA TTP, No spinal TTP - Derm Derm: Normal color, Warm and dry - Extremities Extremities: No deformity, No tenderness to palpate, Normal ROM s pain - Neuro Neuro: Alert and oriented X 3, manganese breaker 2-12 intact Eye Opening: Spontaneous Motor: Obeys Commands Verbal: Oriented GCS Score: 15 Results - Vitals Vitals: Vital Signs - 24 hr 02/24/22 02/24/22 02/24/22 12:38 12:42 13:42 Temperature 37.2 C 37.2 C 36.6 C Heart Rate 73 73 68 Respiratory 22 22 16 Rate Blood Pressure 160/93 H 160/93 H 152/84 H O2 Saturation 98 98 99 02/24/22 02/24/22 14:00 14:30 Temperature Heart Rate 72 70 Respiratory 16 16 Rate Blood Pressure 152/84 H 164/97 H O2 Saturation 98 99 Oxygen O2 Source Room air - EKG (time done) 1237 Rate: Rate (enter#) (64) Rhythm: Atrial fibrillation Intervals: RBBB, Other Ischemia: ST depression, T wave inversion (V2-V6) Compare to prior EKG: Old EKG unavailable Computer interpretation: Agree with computer - Labs Labs: Laboratory Tests 02/24/22 02/24/22 02/24/22 12:44 12:44 12:44 WBC 4.9 RBC 4.53 L Hgb 14.2 Hct 43.1 MCV 95.1 H MCH 31.3 H MCHC 32.9 RDW 13.2 Plt Count 94 L MPV 11.8 H Neut # (Auto) 3.7 Lymph # (Auto) 0.8 L Millard # (Auto) 0.4 Eos # (Auto) 0.0 Baso # (Auto) 0.0 Absolute Nucleated RBC 0.00 Nucleated RBC % 0.0 Sodium 137 Potassium 3.7 Chloride 103 Carbon Dioxide 23 Anion Gap 11.0 BUN 26 H Creatinine 0.8 Estimated GFR (MDRD) 94 Glucose 116 H Calcium 9.3 Total Bilirubin 3.5 H AST 35 ALT 38 Alkaline Phosphatase 64 Troponin I High Sens 12.7 Total Protein 7.2 Albumin 4.6 Globulin 2.6 Albumin/Globulin Ratio 1.8 Lipase 28 - Rads (name of study) cxr Radiology: Final report received (Blunting of the left costophrenic angle suggestive of scarring versus trace effusions) CT aorta Radiology: Final report received (No evidence of aortic dissection. No central pulmonary embolism. Cholelithiasis without evidence of cholecystitis) CT abd/pelvis w Radiology: Final report received (No visualized aortic dissection. Diverticulosis. Cholelithiasis without evidence of cholecystitis.) PD MEDICAL DECISION MAKING - ED course Complexity details: reviewed old records, reviewed results, re-evaluated patient, considered differential, d/w patient, d/w family ED course: 76-year-old male was referred to the emergency department for evaluation of a pulsatile mass seen in his abdomen when he went to a local walk-in clinic to discuss a burning mid abdominal pain that is been present now for about 4 days after eating spicy food. 9 this gentleman is tall and lanky and has been worked up for Marfan's but is reportedly negative. He also has a remote history of lung cancer. He also has Avilla disease. Patient presents very well-appearing. He is denying pain radiating to the back. Just has a vague burning sensation in his abdomen. He does have pectus excavated him. And on exam I do feel a pulsatile mass just below his right lower costal rib margin. We did obtain a CBC and electrolytes today that do not show any worrisome findings. His EKG is essentially unchanged from previous and nonischemic. Troponin was negative. I do note a mild bilirubin elevation consistent with his history of Gilbert's disease. We did complete an angio of the chest/aortogram. Also completed a CT of the abdomen with contrast. There is no findings to suggest an aortic dissection. 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 While here in the emergency department he is remained alert and well-appearing. He has very vague pain that is not well described. The etiology of this mass is not clear though I did discuss it with Pearl Prajapati the radiologist on-call and she is not certain what we are seeing but she does not see any thing of clinical significance on CT scan. Given this finding he is discharged home in stable condition. He is advised to avoid spicy foods. Continue follow-up with his PCP. Emergent return precautions were discussed for worsening symptoms Departure - Departure Disposition: 01 Home, Self Care Clinical Impression: Abdominal pulsatile mass, Pectus excavatum, Gilbert disease, Total bilirubin, elevated Condition: Stable Record reviewed to determine appropriate education?: Yes Comments: Gavin tripp are seen today in the emergency department because you have had a vague burning pain across her mid abdomen for 4 days after eating spicy foods. When you went to a local walk-in clinic the physician there felt that you had a pulsatile mass in your abdomen. I also appreciate this pulsatile sensation. We did do a CBC and electrolytes today. The only significant abnormality is an elevated villa of your bilirubin which is consistent with your reported history of Gilbert's disease. We did do a CT of your chest and abdomen and pelvis. Reassuringly there are no findings to show abdominal aneurysm, aortic dissection, small bowel obstruction, acute appendicitis, cholelithiasis, diverticulitis. It is unclear what this pulsatile mass is though I suspect it may be related to the pectus excavatum And is likely a normal variant of your physiology. Please discuss this ED visit with Dr. Dyson. Return to the ER should you ever develop chest pain, sudden severe shortness of breath, uncontrolled vomiting or have any fainting episodes.
--- NOTE | 2022-02-24 14:29 | CT Report ---
PROCEDURE: ANGIO CHEST W/WO INDICATIONS: ? AO aneurysm/dissection CONTRAST: 100ml Omnipaque 300 TECHNIQUE: After the administration of intravenous contrast, 2 mm axial images were acquired from the pulmonary apices to the posterior costophrenic angles during the arterial phase. In addition, 1 mm lung kernel and 5 mm soft tissue kernel reconstructions were performed. 3-dimensional coronal oblique maximum int ensity projection (MIP) reformats, 8 mm axial MIP, and 5 mm coronal and sagittal MPR reformats were t hen performed through the thorax. For radiation dose reduction, the following was used: automated exp osure control, adjustment of mA and/or kV according to patient size. COMPARISON: Chest x-ray 02/24/2022 FINDINGS: Image quality: Within normal limits Pulmonary arteries: Pulmonary arteries are normal in size, and demonstrate no intraluminal filling d efects to suggest central pulmonary embolism. Lungs and pleura: Emphysematous changes are present. Linear areas of opacity are noted within the robert gula. No pleural effusions or pneumothorax. Central and peripheral airways are patent. Mediastinum: Heart size is enlarged with prominent atria, without pericardial effusion. No mediasti nal or hilar adenopathy. Thoracic aorta is normal in caliber and enhancement. There is no visualized aortic dissection. Esophagus is normal in caliber, without hiatal hernia. Bones and chest wall: No suspicious bony lesions. Ribs and thoracic spine appear intact throughout. No axillary or supraclavicular adenopathy. The thyroid is normal in size and there are no incident al findings. Pectus excavatum deformity is present. Abdomen: Calcifications are present within the gallbladder without wall thickening. Otherwise, visua lized upper abdominal solid organs appear normal in the early arterial phase of enhancement. IMPRESSION: No evidence of aortic dissection. No central pulmonary embolism. Cholelithiasis without imaging evidence of cholecystitis. CLINICAL RECOMMENDATION STATEMENTS: In patients <35 years with an ITN detected on CT, MRI, or extrathyroidal ultrasound, the Committee re commends further evaluation with dedicated thyroid ultrasound if the nodule is "e1 cm and has no susp icious imaging features, and if the patient has normal life expectancy. In patients "e35 years with an ITN detected on CT, MRI, or extrathyroidal ultrasound, the Committee r ecommends further evaluation with dedicated thyroid ultrasound if the nodule is "e1.5 cm and has no s uspicious imaging features, and if the patient has normal life expectancy. (ACR, 2014) Reviewed by: Penny Pendleton MD on 02/24/2022 2:27 PM PDT Approved by: Penny Pendleton MD on 02/24/2022 2:27 PM PDT Station ID: [id number]
--- NOTE | 2022-02-24 14:32 | CT Report ---
PROCEDURE: ABDOMEN/PELVIS W INDICATIONS: AAA CONTRAST: 100ml Omnipaque 300 TECHNIQUE: After the administration of IV contrast, 5 mm thick sections acquired from the diaphragms to the symp hysis. 5 mm thick coronal and sagittal reformats were acquired. For radiation dose reduction, the f ollowing was used: automated exposure control, adjustment of mA and/or kV according to patient size. COMPARISON: CT chest 02/24/2022, CT abdomen and pelvis 01/03/2019 FINDINGS: Image quality: Excellent. ABDOMEN: Lung bases: Lung bases are clear. Heart size is normal. Solid organs: Liver and spleen are normal in size and enhancement. Gallbladder demonstrates luminal calcifications without wall thickening. Biliary system is non dilated. Pancreas enhances normally. No adrenal nodules. Kidneys demonstrate normal size and enhancement, without hydronephrosis. Peritoneum and bowel: Bowel loops demonstrate normal wall thickness and caliber. Colonic diverticul ar present. No free fluid or air. Nodes and vessels: No retroperitoneal or mesenteric adenopathy by size criteria. Aorta and inferior vena cava are normal in size. Miscellaneous: No ventral hernias. Pectus excavatum deformity. PELVIS: Genitourinary: Bladder wall thickness is normal. Miscellaneous: No inguinal hernias or adenopathy. Bones: No suspicious bony lesions. No vertebral body compression fractures. IMPRESSION: No visualized aortic dissection. Diverticulosis. Cholelithiasis without imaging evidence of cholecystitis. Reviewed by: Penny Pendleton MD on 02/24/2022 2:30 PM PDT Approved by: Penny Pendleton MD on 02/24/2022 2:30 PM PDT Station ID: [id number]
[2022-02-24 15:06] VITALS: BP 143/61
[2022-02-24] MEDS ORDERED: iohexoL-300 100 ML VIAL IVP ONE (18:48)
== END 2022-02-24 15:13 | disposition home or self-care (01) ==
LOC: ED 12:31
DX: R19.03 Right lower quadrant abdominal swelling, mass and lump (principal); Q67.6 Pectus excavatum; E80.4 Gilbert syndrome; R82.2 Biliuria; I10 Essential (primary) hypertension; E11.9 Type 2 diabetes mellitus without complications; Z79.84 Long term (current) use of oral hypoglycemic drugs; Z79.01 Long term (current) use of anticoagulants; I48.91 Unspecified atrial fibrillation
CPT/HCPCS: 36415; 71045; 71275; 74177; 80053; 83690; 84484; 85025; 93005; 99284; Q9967

== ENCOUNTER 2022-08-12 07:57 | Outpatient (CLI) | payer MEDICARE, BC ==
[2022-08-12 08:13] LABS: BASOPHILS % (AUTO) 0.7 %; EOSINOPHILS # (AUTO) 0.1 10^3/uL (0.0-0.7); EOSINOPHILS % (AUTO) 1.5 %; HCT - HEMATOCRIT 46.1 % (42.0-52.0); LYMPHOCYTES # (AUTO) 0.9 10^3/uL (1.5-3.5); LYMPHOCYTES % (AUTO) 18.8 %; MEAN CORPUSCULAR HEMOGLOBIN 31.8 pg (27.0-31.0); MEAN CORPUSCULAR HGB CONC 32.5 g/dL (32.0-36.0); MEAN CORPUSCULAR VOLUME 97.9 fL (80.0-94.0); MEAN PLATELET VOLUME 11.3 fL (7.4-11.4); MONOCYTES # (AUTO) 0.4 10^3/uL (0.0-1.0); MONOCYTES % (AUTO) 7.9 %; NEUTROPHILS # (AUTO) 3.2 10^3/uL (1.5-6.6); NEUTROPHILS % (AUTO) 70.9 %; PLT - PLATELET COUNT 111 10^3/uL (130-450); RED BLOOD COUNT 4.71 10^6/uL (4.70-6.10); RED CELL DISTRIBUTION WIDTH 13.2 % (12.0-15.0); WHITE BLOOD COUNT 4.5 x10^3/uL (4.8-10.8)
[2022-08-12 08:27] LABS: CREATININE,URINE 69.1 mg/dL; MICROALBUM/CREATININE RATIO,UR 7.2 ug/mg (<30.0); MICROALBUMIN,URINE 0.5 mg/dL (0-300.0)
[2022-08-12 08:38] LABS: ALBUMIN 4.7 g/dL (3.2-5.5); ALBUMIN/GLOBULIN RATIO 1.8 (1.0-2.2); ALKALINE PHOSPHATASE 65 IU/L (42-121); ALT ALANINE AMINOTRANSFERASE 30 IU/L (10-60); AST ASPARTATE AMINOTRANSFERASE 32 IU/L (10-42); BILIRUBIN,TOTAL 3.1 mg/dL (0.2-1.0); BUN - BLOOD UREA NITROGEN 26 mg/dL (6-20); CALCIUM 9.1 mg/dL (8.5-10.3); CARBON DIOXIDE - CO2 28 mmol/L (21-32); CHLORIDE 102 mmol/L (101-111); CHOL/HDL RATIO 2.2 (<5.0); CHOLESTEROL 128 mg/dL; CREATININE 0.8 mg/dL (0.6-1.2); GFR - MDRD 94 (>89); GLUCOSE 102 mg/dL (70-100); HDL CHOLESTEROL 59 mg/dL; SODIUM 139 mmol/L (135-145); TOTAL PROTEIN 7.3 g/dL (6.7-8.2); TRIGLYCERIDES 33 mg/dL
[2022-08-12 08:41] LABS: THYROID STIMULATING HORMONE 1.84 uIU/mL (0.34-5.60)
[2022-08-12 11:51] LABS: ESTIMATED AVERAGE GLUCOSE 120 mg/dL (70-100); HEMOGLOBIN A1c% 5.8 % (4.27-6.07)
[2022-08-13 04:09] LABS: HEPATITIS A TOTAL AB Positive (Negative); HEPATITIS B SURFACE AB QUANT >1000.0 mIU/mL (Immunity>9.9)
== END 2022-08-12 07:58 | disposition home or self-care (01) ==
LOC: LAB 07:57
PROVIDERS: ATTEND Internal Medicine
DX: Z01.84 Encounter for antibody response examination (principal); E11.9 Type 2 diabetes mellitus without complications; D69.3 Immune thrombocytopenic purpura; E78.5 Hyperlipidemia, unspecified; E04.1 Nontoxic single thyroid nodule
CPT/HCPCS: 36415; 80053; 80061; 82043; 82570; 83036; 83721; 84443; 85025; 86317; 86708

== ENCOUNTER 2022-10-19 10:16 | Outpatient (CLI) | payer MEDICARE, BC ==
--- NOTE | 2022-10-19 16:32 | Ultrasound Report ---
PROCEDURE: Head or Neck Soft Tissue INDICATIONS: THYROID NODULE TECHNIQUE: Real-time scanning was performed of the thyroid gland, with image documentation. COMPARISON: None FINDINGS: Right: Thyroid lobe measures 4.5 x 1.2 x 1.9 cm, and demonstrates 2 nodules Left: Thyroid lobe measures 4.7 x 1.4 x 1.5 cm, and demonstrates a nodule. Isthmus: 2 mm thick. Nodule number: One Location: Right thyroid Size: 0.6 x 0.4 x 0.4 cm. Composition: Spongiform. Echogenicity: Hypoechoic. Shape: wider than tall. Margins: Smooth (0 points). Echogenic foci: Punctate. Total points: 5 ACR TI-RADS category: 5 Recommendations: Follow-up imaging to year for 5 years.. Nodule number: Two Location: Right thyroid Size: 0.5 x 0.3 x 0.3 cm. Composition: Cystic. Echogenicity: Anechoic. Shape: wider than tall. Margins: Smooth (0 points). Echogenic foci: Punctate. Total points: 3 ACR TI-RADS category: 3 Recommendations: Follow-up imaging at 1, 3, and 5 years. Nodule number: Three Location: Left thyroid Size: 0.6 x 0.5 x 0.5 cm. Composition: Solid. Echogenicity: Isoechoic. Shape: wider than tall. Margins: Smooth (0 points). Echogenic foci: None (0 points). Total points: 2 ACR TI-RADS category: 2 Recommendations: No follow-up necessary.. IMPRESSION: Follow-up imaging of right thyroid nodules recommended as above. Reviewed by: Nael Santiago MD on 10/19/2022 4:31 PM PDT Approved by: Nael Santiago MD on 10/19/2022 4:31 PM PDT Station ID: [id number]
== END 2022-10-19 10:17 | disposition home or self-care (01) ==
LOC: DI 10:16
PROVIDERS: ATTEND Internal Medicine
DX: E04.2 Nontoxic multinodular goiter (principal)

== ENCOUNTER 2023-01-11 07:42 | Outpatient (CLI) | payer MEDICARE, BC ==
[2023-01-11 08:07] LABS: BASOPHILS % (AUTO) 0.5 %; EOSINOPHILS # (AUTO) 0.1 10^3/uL (0.0-0.7); EOSINOPHILS % (AUTO) 2.2 %; HCT - HEMATOCRIT 43.2 % (42.0-52.0); LYMPHOCYTES # (AUTO) 0.9 10^3/uL (1.5-3.5); LYMPHOCYTES % (AUTO) 23.1 %; MEAN CORPUSCULAR HEMOGLOBIN 31.7 pg (27.0-31.0); MEAN CORPUSCULAR HGB CONC 32.4 g/dL (32.0-36.0); MEAN PLATELET VOLUME 11.4 fL (7.4-11.4); MONOCYTES # (AUTO) 0.4 10^3/uL (0.0-1.0); MONOCYTES % (AUTO) 10.3 %; NEUTROPHILS # (AUTO) 2.3 10^3/uL (1.5-6.6); NEUTROPHILS % (AUTO) 63.6 %; PLT - PLATELET COUNT 87 10^3/uL (130-450); RED BLOOD COUNT 4.41 10^6/uL (4.70-6.10); RED CELL DISTRIBUTION WIDTH 13.4 % (12.0-15.0); WHITE BLOOD COUNT 3.7 x10^3/uL (4.8-10.8)
[2023-01-11 08:18] LABS: ALBUMIN 4.4 g/dL (3.2-5.5); ALBUMIN/GLOBULIN RATIO 1.8 (1.0-2.2); ALKALINE PHOSPHATASE 75 IU/L (42-121); ALT ALANINE AMINOTRANSFERASE 34 IU/L (10-60); AST ASPARTATE AMINOTRANSFERASE 35 IU/L (10-42); BILIRUBIN,TOTAL 2.9 mg/dL (0.2-1.0); BUN - BLOOD UREA NITROGEN 24 mg/dL (6-20); CALCIUM 9.5 mg/dL (8.5-10.3); CARBON DIOXIDE - CO2 33 mmol/L (21-32); CHLORIDE 105 mmol/L (101-111); CHOLESTEROL 107 mg/dL; CREATININE 0.9 mg/dL (0.6-1.3); GFR - MDRD 82 (>89); GLUCOSE 108 mg/dL (74-104); HDL CHOLESTEROL 54 mg/dL; LDL CHOLESTEROL,CALCULATED 44 mg/dL; LDL/HDL RATIO 0.8 (<3.6); SODIUM 141 mmol/L (135-145); TOTAL PROTEIN 6.9 g/dL (6.4-8.9); TRIGLYCERIDES 44 mg/dL (48-352); VLDL CHOLESTEROL 9 mg/dL
[2023-01-11 08:31] LABS: CREATININE,URINE 74.3 mg/dL; MICROALBUM/CREATININE RATIO,UR 14.8 ug/mg (<30.0); MICROALBUMIN,URINE 1.1 mg/dL; THYROID STIMULATING HORMONE 2.65 uIU/mL (0.34-5.60)
[2023-01-11 14:15] LABS: ESTIMATED AVERAGE GLUCOSE 114 mg/dL (70-100); HEMOGLOBIN A1c% 5.6 % (4.27-6.07)
== END 2023-01-11 07:43 | disposition home or self-care (01) ==
LOC: LAB 07:42
PROVIDERS: ATTEND Internal Medicine
DX: E11.9 Type 2 diabetes mellitus without complications (principal); Z12.5 Encounter for screening for malignant neoplasm of prostate; E78.5 Hyperlipidemia, unspecified; E04.1 Nontoxic single thyroid nodule; J45.20 Mild intermittent asthma, uncomplicated
CPT/HCPCS: 36415; 80053; 80061; 82043; 82570; 83036; 84443; 85025; G0103; 83721; 84153

== ENCOUNTER 2023-08-31 07:51 | Outpatient (CLI) | payer MEDICARE, BC ==
[2023-08-31 08:08] LABS: BASOPHILS % (AUTO) 0.7 %; EOSINOPHILS # (AUTO) 0.1 10^3/uL (0.0-0.7); EOSINOPHILS % (AUTO) 2.9 %; HCT - HEMATOCRIT 46.3 % (42.0-52.0); HGB - HEMOGLOBIN 14.3 g/dL (14.0-18.0); LYMPHOCYTES # (AUTO) 1.2 10^3/uL (1.5-3.5); LYMPHOCYTES % (AUTO) 25.2 %; MEAN CORPUSCULAR HGB CONC 30.9 g/dL (32.0-36.0); MEAN CORPUSCULAR VOLUME 97.1 fL (80.0-94.0); MEAN PLATELET VOLUME 10.7 fL (7.4-11.4); MONOCYTES # (AUTO) 0.4 10^3/uL (0.0-1.0); MONOCYTES % (AUTO) 9.6 %; NEUTROPHILS # (AUTO) 2.8 10^3/uL (1.5-6.6); NEUTROPHILS % (AUTO) 61.4 %; PLT - PLATELET COUNT 109 10^3/uL (130-450); RED BLOOD COUNT 4.77 10^6/uL (4.70-6.10); WHITE BLOOD COUNT 4.6 x10^3/uL (4.8-10.8)
[2023-08-31 08:18] LABS: CREATININE,URINE 82.1 mg/dL
[2023-08-31 08:25] LABS: ALBUMIN 4.3 g/dL (3.2-5.5); ALBUMIN/GLOBULIN RATIO 1.6 (1.0-2.2); ALKALINE PHOSPHATASE 79 IU/L (42-121); ALT ALANINE AMINOTRANSFERASE 25 IU/L (10-60); AST ASPARTATE AMINOTRANSFERASE 26 IU/L (10-42); BILIRUBIN,TOTAL 1.7 mg/dL (0.2-1.0); BUN - BLOOD UREA NITROGEN 30 mg/dL (6-20); CALCIUM 9.7 mg/dL (8.5-10.3); CARBON DIOXIDE - CO2 35 mmol/L (21-32); CHLORIDE 103 mmol/L (101-111); CHOL/HDL RATIO 2.3 (<5.0); CHOLESTEROL 130 mg/dL; CREATININE 0.8 mg/dL (0.6-1.3); GFR - MDRD 93 (>89); GLUCOSE 106 mg/dL (74-104); HDL CHOLESTEROL 56 mg/dL; LDL CHOLESTEROL,CALCULATED 64 mg/dL; LDL/HDL RATIO 1.1 (<3.6); POTASSIUM 3.9 mmol/L (3.5-4.5); SODIUM 141 mmol/L (135-145); TRIGLYCERIDES 48 mg/dL (48-352); VLDL CHOLESTEROL 10 mg/dL
[2023-08-31 08:25] LABS: MICROALBUMIN,URINE < 0.7 mg/dL
[2023-08-31 08:35] LABS: THYROID STIMULATING HORMONE 3.19 uIU/mL (0.34-5.60)
[2023-08-31 10:06] LABS: ESTIMATED AVERAGE GLUCOSE 134 mg/dL (70-100); HEMOGLOBIN A1c% 6.3 % (4.27-6.07)
== END 2023-08-31 07:52 | disposition home or self-care (01) ==
LOC: LAB 07:51
PROVIDERS: ATTEND Internal Medicine
DX: E11.9 Type 2 diabetes mellitus without complications (principal); E78.5 Hyperlipidemia, unspecified; E04.1 Nontoxic single thyroid nodule; I10 Essential (primary) hypertension
CPT/HCPCS: 36415; 80053; 80061; 82043; 82570; 83036; 83721; 84443; 85025

== ENCOUNTER 2023-09-17 17:30 | Outpatient (CLI) | payer MEDICARE, BC ==
--- NOTE | 2023-09-20 09:56 | Ultrasound Report ---
PROCEDURE: Soft Tissue Head or Neck INDICATIONS: THYROID NODULE TECHNIQUE: Real-time scanning was performed of the thyroid gland, with image documentation. COMPARISON: Thyroid ultrasound 05/21/2022. FINDINGS: Right: Thyroid lobe measures 4.6 x 1.7 x 1 point cm. Left: Thyroid lobe measures 4.2 x 1.7 x 1.5 cm Isthmus: 0.4 cm thick. Echotexture: Homogeneous. Previously identified subcentimeter foci of echogenicity are again present. There are unchanged and t here are no interval concerning changes. IMPRESSION: Stable appearance of subcentimeter thyroid foci that do not meet the criteria for additional follow-u p. ACR TI-RADS definitions and recommendations: TI-RADS 1 (benign): 0 points. FNA not needed. TI-RADS 2 (not suspicious): 2 points. FNA not needed. TI-RADS 3 (mildly suspicious): 3 points. "FNA if 2.5 cm or larger, follow up if 1.5 cm or larger (at 1, 3, and 5 years). TI-RADS 4 (moderately suspicious): 4-6 points. "FNA if 1.5 cm or larger, follow up if 1 cm or larger (at 1, 2, 3, and 5 years). TI-RADS 5 (highly suspicious): 7 points or more. "FNA if 1 cm or larger, follow up if 0.5 cm or larger (every year for 5 years). Reviewed by: Penny Pendleton MD on 09/20/2023 9:54 AM PDT Approved by: Penny Pendleton MD on 09/20/2023 9:54 AM PDT Station ID: [id number]
== END 2023-09-17 17:31 | disposition home or self-care (01) ==
LOC: DI 17:30
PROVIDERS: ATTEND Internal Medicine
DX: E04.1 Nontoxic single thyroid nodule (principal)

== ENCOUNTER 2024-01-11 07:50 | Outpatient (CLI) | payer MEDICARE, BC ==
[2024-01-11 08:22] LABS: CALCIUM 9.4 mg/dL (8.5-10.3); CREATININE 0.9 mg/dL (0.6-1.3); POTASSIUM 3.9 mmol/L (3.5-4.5)
[2024-01-11 10:32] LABS: ESTIMATED AVERAGE GLUCOSE 117 mg/dL (70-100); HEMOGLOBIN A1c% 5.7 % (4.27-6.07)
== END 2024-01-11 07:51 | disposition home or self-care (01) ==
LOC: LAB 07:50
PROVIDERS: ATTEND Internal Medicine
DX: E11.9 Type 2 diabetes mellitus without complications (principal); Z12.5 Encounter for screening for malignant neoplasm of prostate
CPT/HCPCS: 36415; 80048; 83036; G0103; 84153